=== PATIENT | male | born 1955 | race Caucasian/White ===

== ENCOUNTER 2016-04-18 13:03 | Emergency (ER) | payer OTHER ==
[~2016-04-18] VITALS: Ht 177.8 cm; Wt 70.9 kg
[~2016-04-18 13:03] MED LIST: FLV1 PO; MULT-589 PO; TGRSR100 PO; THM100 PO
[2016-04-18 13:06] VITALS: TEMP 36.5; Ht 177.8 cm; Wt 70.9 kg
[2016-04-18] MEDS ORDERED: LEVE500T13 PO (13:17)
--- NOTE | 2016-04-18 14:12 | EMERGENCY ROOM VISIT NOTE ---
History Report prepared by Scribe: Aria Sierra Under the Supervision of: Dr. Tammie Bryan D.O. First contact with patient: 14:00 Chief Complaint: NEURO SYMPTOMS Stated Complaint: SEIZURE/LEFT ARM NUMBNESS Nursing Triage Summary: patient with history of brain tumor and seizures since. states that last night he was standing up and felt dizzy and the room was spinning. He sat down. states he has been having some increased weakness on the left side. family states that he has had some auras which his has before seizure activity but not an actual seizure. PCP wants evaluated for possible stroke History of Present Illness The patient is a 61 year old male who presents to the Emergency Room with complaints of a possible seizure. He reports around 2100 last night, his left hand began to feel weak. When he stood up, he started to feel dizzy and diaphoretic. His family states he appeared very pale. 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 His family states he had been experiencing numbness in his arms for the past 1 week, which is usually a precursor to a seizure. His last "full blown" seizure was last summer. He is on anti-seizure medications and follows with Dr. Puente of [facility]. He does not drive a motor vehicle. He denies any recent nausea, vomiting or abdominal pain. He denies any recent issues with eating or drinking. The patient states his symptoms have mostly resolved and he feels better here in the ED. Source of History: patient, family Onset: 2099 last night Position: other (global) Timing: resolved Associated Symptoms: + diaphoresis, + numbness (numbness in bilateral arms) , + weakness (weakness in left hand), No abdominal pain, No nausea, No vomiting Review of Systems See HPI for pertinent positives & negatives. A total of 10 systems reviewed and were otherwise negative. Past Medical & Surgical Medical Problems: (1) Seizures Family History Patient reports no known family medical history. Social History Smoking Status: Current Every Day Smoker Alcohol Use: none Drug Use: marijuana Marital Status: Occupation Status: disabled Current/Historical Medications Scheduled Carbamazepine (Tegretol-Xr), 400 MG PO BID Folic Acid (Folic Acid), 1 MG PO QAM Levetiracetam (Keppra), 500 MG PO BID Multivitamins (Daily Marvin), 1 TAB PO QAM Thiamine HCl (Vitamin B-1), 100 MG PO QAM Allergies Coded Allergies: Phenytoin (Verified Allergy, Unknown, ?, 04/18/16) Physical Exam Vital Signs Date Time Temp Pulse Resp B/P Pulse Ox O2 Delivery O2 Flow Rate FiO2 04/18/16 16:34 67 16 119/67 99 04/18/16 15:52 55 16 134/69 99 04/18/16 15:50 55 16 134/69 99 59 126/59 63 129/73 04/18/16 15:00 54 16 105/57 97 Room Air 04/18/16 13:06 36.5 66 18 124/63 98 Room Air Physical Exam HEENT: Head - normocephalic and atraumatic. Pupils are equal, round, and reactive to light. Extraocular eye muscles are intact and sclera are anicteric. Ears - bilaterally patent canals with noninjected tympanic membranes and no evidence of hemotympanum. Nose - moist nasal mucosa without discharge. Mouth - moist buccal mucosa. Oropharynx is nonerythematous and there is no tonsillar exudate or edema noted. Neck: Supple; no JVD, nuchal rigidity, cervical lymphadenopathy, or auscultated bruits. Heart: Regular rate and rhythm. There is a normal S1 and S2 with no murmurs, clicks, or gallops appreciated. Lungs: Clear to auscultation bilaterally with no wheezes, rales, or rhonchi. Abdomen: Soft, completely nontender, nondistended, with good bowel sounds. There are no palpable pulsatile masses or hepatosplenomegaly. There is no guarding, rigidity, or rebound noted. Extremities: No evidence of cyanosis, clubbing, or edema. There are easily palpable peripheral pulses. Neuro:The patient is awake and alert, oriented to day, time, and place. Muscle strength is 4/5 in left arm and left leg, which is baseline for the patient, and 5/5 in right arm. The patient has equal sample tailor strength and equal pedal push and pull. There are no cerebellar signs. Cranial nerves II through XII intact. Medical Decision & Procedures ER Provider Diagnostic Interpretation: This CT scan was reviewed and interpreted by myself and the radiologist. HEAD CT NONCONTRAST Impression: 1. Chronic and postoperative changes right cerebral hemisphere. 2. No acute intracranial abnormality. 3. Moderate mucosal thickening of the ethmoid and maxillary sinuses. Electronically signed by: Pepe Storey M.D. 04/18/2016 3:23 PM Laboratory Results 04/18/16 14:40 Red Blood Count 4.47, Mean Corpuscular Volume 86.8, Mean Corpuscular Hemoglobin 31.3, Mean Corpuscular Hemoglobin Concent 36.1, Mean Platelet Volume 8.7, Neutrophils (%) (Auto) 67.7, Lymphocytes (%) (Auto) 19.9, Monocytes (%) (Auto) 8.7, Eosinophils (%) (Auto) 3.2, Basophils (%) (Auto) 0.3, Neutrophils # (Auto) 7.18, Lymphocytes # (Auto) 2.11, Monocytes # (Auto) 0.92, Eosinophils # (Auto) 0.34, Basophils # (Auto) 0.03 04/18/16 14:40 Test 04/18/16 14:40 White Blood Count 10.60 K/uL (4.8-10.8) Red Blood Count 4.47 M/uL (4.7-6.1) Hemoglobin 14.0 g/dL (14.0-18.0) Hematocrit 38.8 % (42-52) Mean Corpuscular Volume 86.8 fL (80-100) Mean Corpuscular Hemoglobin 31.3 pg (25-34) Mean Corpuscular Hemoglobin Concent 36.1 g/dl (32-36) Platelet Count 210 K/uL (130-400) Mean Platelet Volume 8.7 fL (7.4-10.4) Neutrophils (%) (Auto) 67.7 % Lymphocytes (%) (Auto) 19.9 % Monocytes (%) (Auto) 8.7 % Eosinophils (%) (Auto) 3.2 % Basophils (%) (Auto) 0.3 % Neutrophils # (Auto) 7.18 K/uL (1.4-6.5) Lymphocytes # (Auto) 2.11 K/uL (1.2-3.4) Monocytes # (Auto) 0.92 K/uL (0.11-0.59) Eosinophils # (Auto) 0.34 K/uL (0-0.5) Basophils # (Auto) 0.03 K/uL (0-0.2) RDW Standard Deviation 40.6 fL (36.4-46.3) RDW Coefficient of Variation 12.6 % (11.5-14.5) Immature Granulocyte % (Auto) 0.2 % Immature Granulocyte # (Auto) 0.02 K/uL (0.00-0.02) Anion Gap 11.0 mmol/L (3-11) Est Creatinine Clear Calc Drug Dose 148.6 ml/min Estimated GFR () 133.3 Estimated GFR (Non- 115.0 BUN/Creatinine Ratio 11.5 (10-20) Calcium Level 8.6 mg/dl (8.5-10.1) Total Bilirubin 0.4 mg/dl (0.2-1) Direct Bilirubin < 0.1 mg/dl (0-0.2) Aspartate Amino Transf (AST/SGOT) 13 U/L (15-37) Alanine Aminotransferase (ALT/SGPT) 23 U/L (12-78) Alkaline Phosphatase 85 U/L (45-117) Total Protein 6.7 gm/dl (6.4-8.2) Albumin 3.5 gm/dl (3.4-5.0) Carbamazepine (Tegretol) Level 11.5 mcg/ml (4-12) Laboratory results per my review. Medications Administered Medications (Trade) Dose Ordered Sig/Amaury Route Start Time Stop Time Status Last Admin Dose Admin Levetiracetam (Keppra Tab) 500 mg NOW STAT PO 04/18/16 15:56 04/18/16 15:57 DC 04/18/16 15:56 500 MG Procedure Keppra PO. ED Course 1402: Past medical records reviewed. The patient was evaluated in room B11B. A complete history and physical exam was performed. Laboratory studies were drawn as above. The patient for CT scan of the brain as described above. 1540: I discussed the patients case with Dr. Puente, [facility]. We discussed the likelihood the patient had a TIA versus a warning seizure. Dr. Puente is inclined to believe his symptoms were that of a warning seizure. He recommends we increase the patients Keppra to 750 mg twice a day and give him an extra 500 mg here in the ED today. He would like the patient contact his office tomorrow morning to have an MRI set up. 1556: Keppra 500 mg PO. 1608: I reevaluated the patient. I discussed his results and discharge instructions and he and his family verbalized complete understanding and agreement. Medical Decision The patient is a 61 year old male who presents to the ED with neurologic symptoms. The differential diagnoses include recurrent brain tumor, acute CVA, seizure and medication non-compliance. Lab results show Tegretol is 11.5, Keppra levels are pending, LFT's are normal, Glucose is normal, Electrolyte and renal function is normal, normal WBC and stable H&H. This is a 61-year-old male patient presents to the emergency department after having an episode last night where he felt lightheaded and dizzy and then developed worsening left arm and left leg weakness. Those symptoms resolved. I discussed the case with his neurologist. They will see him in follow-up. He will increase his dose of Keppra. The patient does not drive. Consults Time Called: 1535 Consulting Physician: Dr. Puente [facility] Returned Call: [phone] I discussed the patients case with Dr. Puente [facility]. We discussed the likelihood the patient had a TIA versus a warning seizure. Dr. Puente is inclined to believe his symptoms were that of a warning seizure. He recommends we increase the patients Keppra to 750 mg twice a day and give him an extra 500 mg here in the ED today. He would like the patient contact his office tomorrow morning to have an MRI set up. Impression Primary Impression: Left arm weakness Additional Impression: Dizziness Scribe Attestation The scribe's documentation has been prepared under my direction and personally reviewed by me in its entirety. I confirm that the note above accurately reflects all work, treatment, procedures, and medical decision making performed by me. Departure Information Dispostion Home / Self-Care Referrals Tu Puente M.D. (PCP) Patient Instructions [facility] Additional Instructions Increase Keppra to 750mg twice a day starting tomorrow. Follow up with Dr. Puente for an appointment to have MRI rescheduled. Problem Qualifiers
[2016-04-18 14:53] LABS: BASO % 0.3 %; BASO ABS # 0.03 K/uL (0-0.2); COMPLETE YES; EOS % 3.2 %; HEMATOCRIT 38.8 % (42-52); IG% 0.2 %; LYMPH % 19.9 %; LYMPH ABS # 2.11 K/uL (1.2-3.4); MEAN CELL VOLUME 86.8 fL (80-100); MEAN CORPUSCULAR HEMOGLOBIN 31.3 pg (25-34); MEAN CORPUSCULAR HGB CONC 36.1 g/dl (32-36); MEAN PLATELET VOLUME 8.7 fL (7.4-10.4); MONO % 8.7 %; NEUT % 67.7 %; PLATELET COUNT 210 K/uL (130-400); RED BLOOD COUNT 4.47 M/uL (4.7-6.1)
[2016-04-18 15:19] LABS: ALT/SGPT 23 U/L (12-78); BLOOD UREA NITROGEN 6 mg/dl (7-18); BUN/CREATININE RATIO 11.5 (10-20); CALCIUM 8.6 mg/dl (8.5-10.1); CARBON DIOXIDE 24 mmol/L (21-32); CHLORIDE 98 mmol/L (98-107); CREATININE 0.53 mg/dl (0.60-1.40); GLUCOSE 80 mg/dl (70-99); POTASSIUM 3.7 mmol/L (3.5-5.1); SODIUM 133 mmol/L (136-145)
[2016-04-18 15:22] LABS: ALKALINE PHOSPHATASE 85 U/L (45-117); AST/SGOT 13 U/L (15-37)
--- NOTE | 2016-04-18 15:25 | DIAGNOSTIC IMAGING REPORT ---
HEAD CT NONCONTRAST CT DOSE: 614.27 mGy.cm HISTORY: Mental status change. Weakness. h/o brain tumor; increased left sided weakness TECHNIQUE: Multiaxial CT images of the head were performed without the use of intravenous contrast. Comparison: 12/09/2014 Findings: Moderate mucosal thickening ethmoid and left maxillary sinus. Small mucous retention cyst anterior margin right maxillary sinus. Mastoids show moderate sclerosis on a chronic basis on the right. Craniotomy flap aligned anatomically. Postoperative encephalomalacia right cerebral hemisphere each changes are considered stable. No evidence of midline shift. No evidence for acute intracranial hemorrhage. Impression: Chronic and postoperative changes right cerebral hemisphere. 2. No acute intracranial abnormality. 3. Moderate mucosal thickening of the ethmoid and maxillary sinuses. Electronically signed by: Pepe Storey M.D. 04/18/2016 3:23 PM Dictated Date/Time: 04/18/2016 3:17 PM
[2016-04-18] MEDS ORDERED: LEVETIRACETAM 500 MG TAB PO STA (15:56)
[2016-04-18 16:34] VITALS: BP 119/67; PULSE 67; O2SAT 99
== END 2016-04-18 16:36 | disposition home or self-care (01) ==
LOC: C.EDB 13:05
DX: R42 Dizziness and giddiness (principal); M62.81 Muscle weakness (generalized); G40.909 Epilepsy, unspecified, not intractable, without status epilepticus; F17.200 Nicotine dependence, unspecified, uncomplicated; Z79.899 Other long term (current) drug therapy; Z88.8 Allergy status to other drugs, medicaments and biological substances

== ENCOUNTER → 2016-04-27 | Outpatient (CLI) | payer OTHER ==
[~2016-04-27] MED LIST changes: +GADAVIST IV PRN; +LEVE500T13 PO
--- NOTE | 2016-04-27 09:55 | DIAGNOSTIC IMAGING REPORT ---
MRI OF THE BRAIN COMBO CLINICAL HISTORY: Epilepsy. History of brain tumor resection. COMPARISON STUDY: MRI of the brain dated 03/11/2015. TECHNIQUE: MRI of the brain was performed utilizing various T1 and T2-weighted sequences in the axial, sagittal, and coronal planes. Contrast-enhanced sequences were acquired following the administration of 6.5 cc of Gadavist. Examination is performed utilizing the seizure protocol. FINDINGS: Brain parenchyma: There is a large resection cavity with encephalomalacia in the right frontoparietal region consistent with previous mass resection. Small foci of restricted diffusion are again seen along the resection margin, diminished in conspicuity from previous. There are scattered foci of peripheral gyriform enhancement along the resection margin as well as thickening and enhancement of the overlying dura. This is likely on a postoperative basis. There is no progressive or nodular/focal abnormal enhancement identified. There is no hemorrhage or mass effect. There is no restricted diffusion typical for acute ischemia. There is minimal subcortical and periventricular microangiopathic change. No extra-axial fluid collection is seen. The cerebellar tonsils are normal in configuration. Ventricles, sulci, and cisterns: Normal in configuration. Pituitary and sella: Unremarkable. Intracranial vasculature: Normal flow voids are maintained at the skull base. Orbits: The bony orbits are grossly intact. Orbital contents are normal in appearance. Sinuses and mastoids: There is subtotal opacification of left maxillary antrum. Moderate mucosal thickening is noted in the ethmoid sinuses. Mild mucosal thickening seen in the right maxillary antrum and the frontal sinuses. There are bilateral mastoid effusions. Calvarium: Again seen are changes from right frontoparietal craniotomy. No destructive calvarial lesion is seen. Cervical cord: Partially visualized cervical spinal cord is normal in morphology and signal intensity. IMPRESSION: 1. No acute intracranial abnormality. 2. Stable postoperative appearance of the brain as compared to the 03/11/2015 examination. 3. There is no clear evidence of recurrent/residual enhancing tumor. See above discussion. 4. Paranasal sinus disease and mastoid effusions as above. Electronically signed by: Soto Mcgee M.D. 04/27/2016 9:54 AM Dictated Date/Time: 04/27/2016 9:45 AM
== END | disposition home or self-care (01) ==
LOC: C.MRI 08:40
PROVIDERS: ATTEND Psychiatry & Neurology Neurology
DX: C71.9 Malignant neoplasm of brain, unspecified (principal); G40.901 Epilepsy, unspecified, not intractable, with status epilepticus; J32.9 Chronic sinusitis, unspecified; H74.8X3 Other specified disorders of middle ear and mastoid, bilateral

== ENCOUNTER → 2016-05-12 | Outpatient (CLI) | payer OTHER ==
[~2016-05-12] MED LIST changes: -GADAVIST IV PRN
--- NOTE | 2016-05-12 10:25 | DIAGNOSTIC IMAGING REPORT ---
Limited abdominal ultrasound ABDOMEN FOR HERNIA CLINICAL HISTORY: UNILATERAL INGUINAL HERNIA, W/O OBST OR GANGRENE hernia TECHNIQUE: Ultrasound COMPARISON STUDY: None FINDINGS: Reducible fat-containing left inguinal hernia. No evidence for bowel containment. IMPRESSION: Reducible fat-containing left inguinal hernia. No evidence of bowel containment. Electronically signed by: Pepe Storey M.D. 05/12/2016 10:23 AM Dictated Date/Time: 05/12/2016 10:22 AM
== END | disposition home or self-care (01) ==
LOC: C.ULTRBC 09:27
PROVIDERS: ATTEND Family Medicine
DX: K40.91 Unilateral inguinal hernia, without obstruction or gangrene, recurrent (principal)

== ENCOUNTER → 2016-05-31 | Outpatient (CLI) | payer OTHER ==
[~2016-05-31] MED LIST changes: +ATROPINE SULFATE 0.1 MG/ML 5ML SYR ONE; +DOBUTamine HCL 12.5 MG/ML 20 ML VIAL ONE; +METOPROLOL TARTRATE 1 MG/ML VIAL ONE
--- NOTE | 2016-05-31 13:57 | DOBUTAMINE ECHO ---
*NOTICE TO RECEIVING DEMOCRAT AGENCY This information is strictly Confidential and protected under [place] law. [place] law prohibits you from making any further disclosure of this information unless further disclosure is expressly permitted by the written consent of the person to whom it pertains or is authorized by law. A general authorization for the release of medical or other information is not sufficient for this purpose. Hospital accepts no responsibility if the information is made available to any other person, INCLUDING THE PATIENT. Interpretation Summary * Name: NICOLASA GUNN Study Date: 05/31/2016 08:41 AM BP: 119/81 mmHg * Patient Location: [facility] HR: 57 * : 1955 (M/d/yyyy) Gender: Male Height: 70 in * Age: 61 yrs Ethnicity: [place] Weight: 164 lb * Ordering Physician: Fannie Platt * Referring Physician: Fannie Platt * Performed By: Elle Flores RCS * * Reason For Study: PRE-OP / ABN EKG * BSA: 1.9 m2 * STRESS STUDY: Normal pharmacologic stress echocardiogram. No echocardiographic or ECG evidence of myocardial ischemia having achieved heart rate adequate for diagnostic purposes. * -- Conclusions -- * STRESS STUDY: Normal pharmacologic stress echocardiogram. No echocardiographic or ECG evidence of myocardial ischemia having achieved heart rate adequate for diagnostic purposes. Procedure Details * DOBUTAMINE ECHO, CPT#[id number] * ECHO COLOR FLOW, CPT #[id number] * ECHO DOPPLER, CPT #[id number] Left Ventricle * The left ventricle is normal in size. * There is normal left ventricular wall thickness. * Ejection Fraction = 50-55%. * Left ventricular systolic function is normal. * The left ventricular wall motion is normal at rest. * The left ventricular ejection fraction increases normally with stress. The left ventricular end-systolic cavity size reduces post-stress (normal response). The left ventricular wall motion with stress is normal. Right Ventricle * The right ventricle is normal in size and function. Atria * The left atrial size is normal. * Right atrial size is normal. * No ASD detected; PFO is not assessed. Mitral Valve * The mitral valve is normal. * There is no mitral valve stenosis. * Significant mitral regurgitation is absent. Tricuspid Valve * The tricuspid valve is normal. * There is no tricuspid stenosis. * Significant tricuspid regurgitation is absent. Aortic Valve * The aortic valve is trileaflet. * Aortic stenosis is absent. * There is no significant aortic regurgitation. Pulmonic Valve * The pulmonary valve is not well seen, but the Doppler examination is normal without significant regurgitation or stenosis. Great Vessels * The aortic root and proximal ascending aorta are normal sized. Pericardium * There is no pericardial effusion. Stress Parameters * The baseline ECG displays normal sinus rhythm. * IRBBB * Stress ECG: No ST changes. No arrhythmias. * The stress ECG response was normal * The stress portion of this study was personally supervised by the undersigned interpreting physician. * Rest heart rate was '57' BPM. * Rest blood pressure was '119/81' * Maximum heart rate achieved was 153 bpm. * Maximum heart rate was 95 % of maximum age-predicted heart rate. * Maximum blood pressure was '142/60' * Maximum Dobutamine infusion rate was '50' mcg/kg/min. * A total of 0.5 mg of intravenous Atropine was used to supplement Dobutamine for heart rate response. * Dobutamine infusion was terminated due to end of protocol/maximum medication doses * A total of 0 mg of IV Metoprolol was administered to reverse Dobutamine-induced tachycardia. MMode 2D Measurements and Calculations IVSd 1.1 cm IVSs 1.4 cm LVIDd 4.2 cm LVIDs 3.0 cm LVPWd 1.2 cm LVPWs 1.1 cm IVS/LVPW 0.91 FS 26.9 % EDV(Teich) 76.9 ml ESV(Teich) 36.2 ml EF(Teich) 52.9 % EDV(cubed) 72.1 ml ESV(cubed) 28.2 ml EF(cubed) 61.0 % % IVS thick 26.3 % % LVPW thick -12.21 % LV mass(C)d 170.4 grams LV mass(C)dI 88.8 grams/m\S\2 LV mass(C)s 118.4 grams LV mass(C)sI 61.7 grams/m\S\2 SV(Teich) 40.7 ml SI(Teich) 21.2 ml/m\S\2 SV(cubed) 44.0 ml SI(cubed) 22.9 ml/m\S\2 Ao root diam 3.9 cm Ao root area 12.2 cm\S\2 LA dimension 2.7 cm LA/Ao 0.69 LVOT diam 1.9 cm LVOT area 2.8 cm\S\2 LVAd ap4 30.4 cm\S\2 LVLd ap4 8.3 cm EDV(MOD-sp4) 91.1 ml EDV(sp4-el) 94.4 ml LVAs ap4 18.0 cm\S\2 LVLs ap4 6.8 cm ESV(MOD-sp4) 40.4 ml ESV(sp4-el) 40.6 ml EF(MOD-sp4) 55.6 % EF(sp4-el) 57.0 % LVAd ap2 36.3 cm\S\2 LVLd ap2 8.3 cm EDV(MOD-sp2) 129.0 ml EDV(sp2-el) 134.5 ml LVAs ap2 25.2 cm\S\2 LVLs ap2 7.3 cm ESV(MOD-sp2) 71.3 ml ESV(sp2-el) 73.8 ml EF(MOD-sp2) 44.7 % EF(sp2-el) 45.1 % LVLd %diff -0.26 % EDV(MOD-bp) 109.4 ml LVLs %diff 7.0 % ESV(MOD-bp) 55.8 ml EF(MOD-bp) 48.9 % SV(MOD-sp4) 50.6 ml SI(MOD-sp4) 26.4 ml/m\S\2 SV(MOD-sp2) 57.7 ml SI(MOD-sp2) 30.1 ml/m\S\2 SV(MOD-bp) 53.5 ml SI(MOD-bp) 27.9 ml/m\S\2 SV(sp4-el) 53.7 ml SI(sp4-el) 28.0 ml/m\S\2 SV(sp2-el) 60.7 ml SI(sp2-el) 31.6 ml/m\S\2 Doppler Measurements and Calculations MV E max poonam 52.3 cm/sec MV A max poonam 42.6 cm/sec MV E/A 1.2 MV P1/2t max poonam 67.2 cm/sec MV P1/2t 97.4 msec MVA(P1/2t) 2.3 cm\S\2 MV dec slope 202.1 cm/sec\S\2 MV dec time 0.43 sec Ao V2 max 118.3 cm/sec Ao max PG 5.6 mmHg Ao max PG (full) -1.04 mmHg MANUEL(V,A) 3.1 cm\S\2 MANUEL(V,D) 3.1 cm\S\2 LV V1 max PG 6.6 mmHg LV V1 max 128.9 cm/sec PA V2 max 95.3 cm/sec PA max PG 3.6 mmHg TR max poonam 230.1 cm/sec
== END | disposition home or self-care (01) ==
LOC: C.CPL 07:55
PROVIDERS: ATTEND Internal Medicine
DX: Z01.818 Encounter for other preprocedural examination (principal); R94.31 Abnormal electrocardiogram [ECG] [EKG]

== ENCOUNTER 2021-03-01 10:28 | Inpatient (IN) ==
[2021-03-01] MEDS ORDERED: ACETAMINOPHEN 500 MG TAB PO STA (10:36)
[2021-03-01] MEDS ORDERED: ONDANSETRON INJ 2 MG/ML 2 ML VIAL IV STA (10:36)
[2021-03-01] MEDS ORDERED: SODIUM CHLORIDE 0.9% 1000ML 1,000 ML IV STA (10:36)
--- NOTE | 2021-03-01 10:42 | Emergency Department Note ---
Impression & Plan Acute orchitis, Fever, Acute hypotension ED Provider Note NAME: NICOLASA Limon MONDAY AGE: 66 SEX: M : 1955 ARRIVES VIA: Ambulance INFORMANT: Patient, ED PROVIDER(S): Kalen Murguia DO CHIEF COMPLAINT: Testicle pain HPI: The patient is a 66-year-old male who presented to emergency department for evaluation of testicular pain. The patient arrived via ambulance. He took Tylenol this morning. He states he had a subjective fever but did not check his temperature at home. He also complains of left flank pain and left back pain. He denies having any nausea or vomiting. He denies having any lower extremity swelling or pain. He does complain of a slight cough but no sore throat or rhinorrhea. He said no exposure to COVID-19. The patient states that he is not currently sexually active. He denies having any penile discharge or rashes. ROS: See above HPI for pertinent positives & negatives. A total of 10 systems reviewed and were otherwise negative. PAST MEDICAL HISTORY: See Below PAST SURGICAL HISTORY: See Below FAMILY HISTORY: See Below SOCIAL HISTORY: See Below HOME MEDICATIONS: See Below ALLERGIES: GENERAL: Patient is awake alert in no acute distress patient is resting comfortably and showing no signs of anxiety EYES: The conjunctivae are clear. The pupils are round and reactive. EARS, NOSE, MOUTH AND THROAT: The nose is without any evidence of any deformity. NECK: The neck is nontender and supple. RESPIRATORY: Normal respiratory effort is noted there is no evidence of wheezing rhonchi or rales CARDIOVASCULAR: Regular rate and rhythm noted there no murmurs rubs or gallops normal S1 normal S2. GASTROINTESTINAL: The abdomen is soft and nondistended. There is left lower quadrant tenderness to palpation but no guarding rigidity : Circumcised male genitalia was noted. Testicles are descended bilaterally. There is significant tenderness on the left testicle. BACK: No midline tenderness was noted. Left CVA tenderness was noted to percussion. Range of motion appears intact. MUSCULOSKELETAL/EXTREMITIES: The patient presented to emergency department wearing a left shoulder sling because of a problem with his left shoulder that is being addressed by his orthopedic physician. SKIN: Skin is warm and dry. There is no significant pedal edema. NEUROLOGIC: Patient is awake alert and oriented x3. VITALS: See Below PHYSICAL EXAMINATION: MEDICAL DECISION MAKING: The patient is a 66-year-old male who presented to emergency department for an evaluation of testicular pain. The patient was found have a fever and hypotension. He was treated with IV fluids and IV antibiotics in the emergency department. I discussed the patient's laboratory and radiographic studies with him. He was found to have orchitis on ultrasound. Certainly this could cause the patient's presentation but the patient also has some complicating factors including left-sided weakness and inability to ambulate secondary to testicular pain. For this reason I discussed his case [facility] They have agreed to evaluate the patient in the emergency department for further management and disposition. The patient was reevaluated multiple times. Triage Nursing notes reviewed. Prior medical records reviewed Vital Signs: reviewed and remarkable for hypotension and fever. Differential diagnosis: Testicular torsion, mass, infection, hernia, hydrocele, epididymitis, STI, trauma, intra-abdominal process, as well as other pathologies. ER treatment provided: See below Diagnostics interpreted by me: ECG: none Cardiac Monitoring: An order was placed for continuous cardiac monitoring. The monitor shows a rate of 70 bpm with sinus rhythm. Laboratory studies: As stated above and show below. Imaging studies: See below Consultation(s): I discussed this case with Dr. Tolliver who is [facility]. He will evaluate the patient in the emergency department. 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, bilateral Drug abuse History of brain tumor (2014) R frontal astrocytoma, s/p removal Left hemiparesis Noncompliance with medication regimen Right frontal lobe mass Seizure disorder Surgical History History of craniotomy (2014) S/P inguinal hernia repair L S/P knee surgery R knee Family History Other Adopted Denies family history of Ovarian cancer Prostate cancer Bipolar disorder Myocardial infarction Colorectal cancer Social History Smoking Status: Current every day smoker Tobacco Type: Cigarettes Age Started Using Tobacco: 18; packs per day: 1; Cigarettes Per Day: 20; Second Hand Exposure: No; Hx Alcohol Use: Yes Alcohol type: beer Alcohol Intake Frequency: Monthly or Less Alcohol Intake Frequency Comment: maybe a beer a month Hx Substance Use: Yes Non-Prescribed Medications: Marijuana Preferred Language: Filipino Visual Impairment: Limited Hearing Ability: Normal Truck Guard Required: No Beliefs That Will Affect Care: None marital status: marital status details: common-law marriage Current Living Situation: Significant Other current occupational status: disabled How many Children do You have: 3 How many Children do You have Comment: 3 grown sons Feels Safe at Home: Yes Childhood Exposure to Second-Hand Smoke: Yes caffeine: Yes during the past year weight has: remained stable Dental Care, Regularly: No Physical Activity Frequency: Daily Seatbelt Use: always Sunscreen Use: Yes Allergies Allergies Allergy/AdvReac Type Severity Reaction Status Date / Time phenytoin Allergy Intermediate Redness of Verified 03/01/21 15:01 Skin zonisamide AdvReac Intermediate Depression Verified 03/01/21 15:01 Home Meds Home Medications Medication Instructions Recorded Confirmed folic acid 1 mg tablet 1 mg PO BID #30 tab 09/11/18 03/01/21 multivitamin (Multiple Vitamins) 1 tab PO DAILY 09/11/18 03/01/21 vitamin B complex (B 1 tab PO DAILY 09/11/18 03/01/21 Complex-Vitamin B12) glucosamine sulfate 2KCl 1,000 mg 2,000 mg PO BID 03/14/19 03/01/21 tablet (Glucosamine Relief) Saccharomyces boulardii 250 mg 500 mg PO BID cap 10/21/20 03/01/21 capsule (Florastor) cholecalciferol (vitamin D3) 25 25 mcg PO DAILY 03/01/21 03/01/21 mcg (1,000 unit) tablet (Vitamin D3) Previous Rx's Medication Instructions Recorded triamcinolone acetonide 0.1 % 1 applic TOPICAL BID #454 g 07/24/20 topical ointment Wheelchair (Manual) See Rx Instructions .ROUTE 10/23/20 .COMPLEX #1 ea Wheeled Walker See Rx Instructions .ROUTE 10/23/20 .COMPLEX #1 ea levetiracetam 1,000 mg tablet 1,000 mg PO BID 90 Days #180 tab 01/11/21 cholestyramine (with sugar) 4 gram 4 g PO BID #378 g 01/13/21 oral powder (Questran) dexamethasone 4 mg tablet 2 mg PO BID #30 tab 02/03/21 (Decadron) carbamazepine 200 mg 400 mg PO BID 90 Days #360 cap 03/01/21 capsule,extended release [id number] Results & Data (ED) Vital Signs Vital Signs - 24 hr 03/01/21 10:36 03/01/21 12:00 03/01/21 14:00 Temperature 38.4 C H Temperature Source Oral Pulse Rate 92 H Pulse Rate [Right Finger] 92 H 82 Pulse Rhythm Regular Pulse Rhythm [Right Finger] Regular Regular Pulse Strength Normal Pulse Strength [Right Finger] Normal Normal Respiratory Rate 18 16 18 Respiratory Effort / Characteristics Non-Labored Non-Labored Non-Labored Respiratory Depth Normal Normal Normal Respiratory Pattern Regular Blood Pressure 117/65 Blood Pressure [Left Arm] 107/50 L 98/51 L Blood Pressure Mean 82 Blood Pressure Mean [Left Arm] 69 66 Blood Pressure Position Lying Blood Pressure Position [Left Arm] Lying Lying Pulse Oximetry 95 96 95 Oxygen Delivery Method Room Air Room Air Room Air Sepsis Recent Fever Within 48 Hours No Sepsis New/Unexplained Change in Mental Status N/A Sepsis Action Taken by Nursing No Action Required 03/01/21 16:00 Temperature Temperature Source Pulse Rate Pulse Rate [Right Finger] 70 Pulse Rhythm Pulse Rhythm [Right Finger] Regular Pulse Strength Pulse Strength [Right Finger] Normal Respiratory Rate 18 Respiratory Effort / Characteristics Non-Labored Respiratory Depth Normal Respiratory Pattern Regular Blood Pressure Blood Pressure [Left Arm] 94/60 L Blood Pressure Mean Blood Pressure Mean [Left Arm] 71 Blood Pressure Position Blood Pressure Position [Left Arm] Lying Pulse Oximetry 97 Oxygen Delivery Method Room Air Sepsis Recent Fever Within 48 Hours Sepsis New/Unexplained Change in Mental Status Sepsis Action Taken by Snf Medications Current Medication List: was personally reviewed by me Laboratory Data Attestation: I reviewed the patient's lab results. Result diagrams: 03/01/21 11:26 03/01/21 11:26 Lab Results 03/01/21 03/01/21 03/01/21 Range/Units 11:26 11:26 11:26 WBC 20.02 H (4.8-10.8) K/uL RBC 4.34 L (4.7-6.1) M/uL Hgb 13.8 L (14.0-18.0) g/dL Hct 40.2 L (42-52) % MCV 92.6 (80-100) fL MCH 31.8 (25-34) pg MCHC 34.3 (32-36) g/dL RDW Std Deviation 43.1 (36.4-46.3) fL RDW Coeff of Karen 12.5 (11.5-14.5) % Plt Count 162 (130-400) K/uL MPV 8.1 (7.4-10.4) fL Immature Gran % (Auto) 0.2 % Neut % (Auto) 86.3 % Lymph % (Auto) 6.9 % Conway % (Auto) 6.5 % Eos % (Auto) 0.1 % Baso % (Auto) 0.0 % Neut # (Auto) 17.25 H (1.4-6.5) K/uL Lymph # (Auto) 1.39 (1.2-3.4) K/uL Conway # (Auto) 1.30 H (0.11-0.59) K/uL Eos # (Auto) 0.02 (0-0.5) K/uL Baso # (Auto) 0.01 (0-0.2) K/uL Immature Gran # (Auto) 0.05 H (0.00-0.02) K/uL Sodium 135 L (136-145) mmol/L Potassium 3.5 (3.5-5.1) mmol/L Chloride 101 (98-107) mmol/L Carbon Dioxide 27 (21-32) mmol/L Anion Gap 7 (3-11) BUN 13 (6-23) mg/dl Creatinine 0.50 L (0.6-1.4) mg/dl Est Cr Clr Drug Dosing 146.3 ml/min Est GFR ( Amer) 131.8 ml/min Est GFR (Non-Af Amer) 113.7 ml/min BUN/Creatinine Ratio 26.0 H (10-20) Glucose 90 (70-99(Fasting)) mg/dl Lactate (0.4-2.0) mmol/L Calcium 8.9 (8.5-10.1) mg/dl Total Bilirubin 0.6 (0.2-1.0) mg/dl AST 11 L (13-39) U/L ALT 14 (7-52) U/L Alkaline Phosphatase 68 (34-104) U/L Total Protein 6.7 (6.0-8.3) gm/dl Albumin 3.8 (3.4-5.0) gm/dl Globulin 2.9 (2.5-4.0) gm/dl Albumin/Globulin Ratio 1.3 (0.9-2) Lipase 8 L (11-82) U/L Urine Color Urine Appearance (Clear) Urine pH (4.5-7.5) Ur Specific [place] (1.000-1.030) Urine Protein (Negative) Urine Glucose (UA) (Negative) Urine Ketones (Negative) Urine Blood (Negative) Urine Nitrite (Negative) Urine Bilirubin (Negative) Urine Urobilinogen (Negative) Ur Leukocyte Esterase (Negative) Urine WBC (Auto) (0-5) /hpf Urine RBC (Auto) (0-4) /hpf U Hyaline Cast (Auto) (0-5) /lpf U Epithel Cells (Auto) (0-5) /lpf Urine Bacteria (Auto) (Negative) Carbamazepine 9.3 (4-12) mcg/ml 03/01/21 03/01/21 Range/Units 12:38 15:25 WBC (4.8-10.8) K/uL RBC (4.7-6.1) M/uL Hgb (14.0-18.0) g/dL Hct (42-52) % MCV (80-100) fL MCH (25-34) pg MCHC (32-36) g/dL RDW Std Deviation (36.4-46.3) fL RDW Coeff of Karen (11.5-14.5) % Plt Count (130-400) K/uL MPV (7.4-10.4) fL Immature Gran % (Auto) % Neut % (Auto) % Lymph % (Auto) % Conway % (Auto) % Eos % (Auto) % Baso % (Auto) % Neut # (Auto) (1.4-6.5) K/uL Lymph # (Auto) (1.2-3.4) K/uL Conway # (Auto) (0.11-0.59) K/uL Eos # (Auto) (0-0.5) K/uL Baso # (Auto) (0-0.2) K/uL Immature Gran # (Auto) (0.00-0.02) K/uL Sodium (136-145) mmol/L Potassium (3.5-5.1) mmol/L Chloride (98-107) mmol/L Carbon Dioxide (21-32) mmol/L Anion Gap (3-11) BUN (6-23) mg/dl Creatinine (0.6-1.4) mg/dl Est Cr Clr Drug Dosing ml/min Est GFR ( Amer) ml/min Est GFR (Non-Af Amer) ml/min BUN/Creatinine Ratio (10-20) Glucose (70-99(Fasting)) mg/dl Lactate 0.9 (0.4-2.0) mmol/L Calcium (8.5-10.1) mg/dl Total Bilirubin (0.2-1.0) mg/dl AST (13-39) U/L ALT (7-52) U/L Alkaline Phosphatase (34-104) U/L Total Protein (6.0-8.3) gm/dl Albumin (3.4-5.0) gm/dl Globulin (2.5-4.0) gm/dl Albumin/Globulin Ratio (0.9-2) Lipase (11-82) U/L Urine Color Yellow Urine Appearance Clear (Clear) Urine pH 6.5 (4.5-7.5) Ur Specific [place] 1.022 (1.000-1.030) Urine Protein Negative (Negative) Urine Glucose (UA) Negative (Negative) Urine Ketones Negative (Negative) Urine Blood Negative (Negative) Urine Nitrite Negative (Negative) Urine Bilirubin Negative (Negative) Urine Urobilinogen Negative (Negative) Ur Leukocyte Esterase Trace H (Negative) Urine WBC (Auto) 1-5 (0-5) /hpf Urine RBC (Auto) 0-4 (0-4) /hpf U Hyaline Cast (Auto) 0 (0-5) /lpf U Epithel Cells (Auto) 5-10 H (0-5) /lpf Urine Bacteria (Auto) Negative (Negative) Carbamazepine (4-12) mcg/ml Administered Medications Fentanyl Citrate (Fentanyl Citrate 100 Mcg/2 Ml Vial) 50 mcg IV Q15M PRN PRN Reason: Pain Stop: 03/15/21 10:35 Last Admin: 03/01/21 11:47 Dose: 50 mcg Documented by: [id number] Sodium Chloride (Nss 1000ml) 1,000 mls @ 999 mls/hr IV .Q1H1M ONE Stop: 03/01/21 16:53 Last Admin: 03/01/21 16:11 Dose: 999 mls/hr Documented by: [id number] Discontinued Medications Acetaminophen (Acetaminophen 500 Mg Tab) 1,000 mg PO NOW STA Stop: 03/01/21 10:37 Last Admin: 03/01/21 11:42 Dose: 1,000 mg Documented by: [id number] Sodium Chloride (Nss 1000ml) 1,000 mls @ 999 mls/hr IV .Q1H1M STA Stop: 03/01/21 11:36 Last Infusion: 03/01/21 13:01 Dose: 0 mls/hr Documented by: [id number] Admin: 03/01/21 11:42 Dose: 999 mls/hr Documented by: [id number] Piperacillin Sod/Tazobactam Sod (Zosyn) 4.5 gm in 120 mls @ 240 mls/hr IV NOW ONE Stop: 03/01/21 12:12 Last Infusion: 03/01/21 13:21 Dose: 0 mls/hr Documented by: [id number] Admin: 03/01/21 12:44 Dose: 240 mls/hr Documented by: [id number] Ioversol (Optiray 320 100ml) 94 ml IV ONCE ONE Stop: 03/01/21 13:05 Last Admin: 03/01/21 13:05 Dose: 94 ml Documented by: [id number] Ondansetron HCl (Ondansetron Inj 2 Mg/Ml 2 Ml Vial) 4 mg IV NOW STA Stop: 03/01/21 10:37 Last Admin: 03/01/21 11:42 Dose: 4 mg Documented by: [id number] Imaging Data Radiologist's Impression: Scrotum Ultrasound 03/01/21 10:36 SCROTAL ULTRASOUND CLINICAL HISTORY: Left sided pain. COMPARISON STUDY: None. TECHNIQUE: Grayscale and color and duplex Doppler sonography of the scrotum was performed. FINDINGS: The right testis measures 3.9 x 3 x 2.1 cm and the left measures 4.5 x 3.1 x 3 cm. There is asymmetric increased flow within the left testis. Bilateral dilated rete testes are incidentally noted. These are benign. There is a small complex left hydrocele. There is no sonographic evidence for epididymitis. No suspicious testicular masses are present. Numerous echogenic foci within the testes are noted. This represents microlithiasis. IMPRESSION: 1. Asymmetric increased flow within the left testis suggestive of orchitis. 2. Small, mildly complex left hydrocele. 3. Testicular microlithiasis. ACT 112: Negative or not required by law. Electronically signed by: Dong Vicente M.D. 03/01/2021 12:20 PM Abdomen/Pelvis CT 03/01/21 11:42 CT abd pelvis IV con only CLINICAL HISTORY: left sided pain, fever TECHNIQUE: Helical axial images of the abdomen and pelvis were obtained and displayed. Automated dose lowering techniques and/or adjustment according to patient size were utilized for this exam. This exam was performed with intravenous contrast. COMPARISON: None available at the time of this dictation. FINDINGS: Lower chest: Bibasilar atelectasis versus scarring is seen. Liver: Unremarkable. No focal lesions are seen. Gallbladder and biliary tree: No calcified gallstones. Normal caliber wall. No intra- or extrahepatic biliary ductal dilation. Pancreas: Unremarkable, no focal lesions. Spleen: Unremarkable. Adrenals: Unremarkable. Kidneys and ureters: A hypodensity is seen in the left kidney superior pole which does not measure simple fluid attenuation. This measures 16 mm in diameter. Bladder: Limited evaluation due to underdistention. Reproductive organs: Unremarkable. Bowel: Diverticulosis is seen without evidence of diverticulitis. The appendix is normal. There is a small hiatal hernia. Lymph nodes Retroperitoneal: Unremarkable. Mesenteric: Unremarkable. Pelvic: Subcentimeter lymph nodes are noted. Peritoneum: Normal. Vessels: Atherosclerotic calcifications are seen. Abdominal wall: Left fat containing inguinal hernia. Bones: Degenerative changes in the visualized spine. IMPRESSION: 1. No acute abnormalities are seen to explain left-sided pain and fever. No evidence of diverticulitis. No changes of pyelonephritis are seen. 2. There is a 16 mm hypodense lesion in the left kidney superior pole which is not measures simple fluid density. If not previously evaluated, nonemergent CT or MRI renal mass protocol can be performed. ACT 112: Negative or not required by law. Electronically signed by: Keith Asif M.D. 03/01/2021 1:16 PM Discharge Plan Visit Data Chief Complaint: Testicular Pain ED Provider: Kalen Murguia Discharge Problem: Acute orchitis, Fever, Acute hypotension Patient Disposition: Being Evaluated by Hospitalist Forms Stand Alone Forms: [facility] Prescriptions Prescriptions: No Action levetiracetam 1,000 mg tablet 1,000 mg PO BID 90 Days Qty: 180 RF: 1 cholestyramine (with sugar) [Questran] 4 gram powder 4 g PO BID Qty: 378 RF: 2 dexamethasone [Decadron] 4 mg tablet 2 mg PO BID Qty: 30 RF: 3 carbamazepine 200 mg capsule, ER multiphase 12 hr 400 mg PO BID 90 Days Qty: 360 RF: 1 glucosamine sulfate 2KCl [Glucosamine Relief] 1,000 mg tablet 2,000 mg PO BID RF: 0 triamcinolone acetonide 0.1 % ointment 1 applic topical BID Qty: 454 RF: 0 folic acid 1 mg tablet 1 mg PO BID Qty: 30 RF: 0 vitamin B complex [B Complex-Vitamin B12] tablet 1 tab PO DAILY RF: 0 multivitamin [Multiple Vitamins] tablet 1 tab PO DAILY RF: 0 Wheelchair (Manual) Device See Rx Instructions .ROUTE .COMPLEX Qty: 1 RF: 0 Wheeled Walker Misc See Rx Instructions .ROUTE .COMPLEX Qty: 1 RF: 0 Saccharomyces boulardii [Florastor] 250 mg capsule 500 mg PO BID RF: 0 cholecalciferol (vitamin D3) [Vitamin D3] 25 mcg (1,000 unit) Tablet 25 mcg PO DAILY RF: 0 Referrals Referrals: Andreia Fields DO [Primary Care Provider] -
[2021-03-01 11:37] LABS: Basophils # (auto) 0.01 K/uL (0-0.2); Eosinophils # (auto) 0.02 K/uL (0-0.5); Eosinophils % (auto) 0.1 %; Hematocrit (blood only) 40.2 % (42-52); Hemoglobin 13.8 g/dL (14.0-18.0); Immature Granulocytes # (auto) 0.05 K/uL (0.00-0.02); Immature Granulocytes % (auto) 0.2 %; Lymphocytes # (auto) 1.39 K/uL (1.2-3.4); Lymphocytes % (auto) 6.9 %; Mean Corpuscular Hemoglobin 31.8 pg (25-34); Mean Corpuscular Hgb Conc 34.3 g/dL (32-36); Mean Corpuscular Volume 92.6 fL (80-100); Mean Platelet Volume 8.1 fL (7.4-10.4); Monocytes % (auto) 6.5 %; Neutrophils # (auto) 17.25 K/uL (1.4-6.5); Neutrophils % (auto) 86.3 %; Platelet Count 162 K/uL (130-400); RDW Coefficient of Variation 12.5 % (11.5-14.5); RDW Standard Deviation 43.1 fL (36.4-46.3); Red Blood Count 4.34 M/uL (4.7-6.1); White Blood Count 20.02 K/uL (4.8-10.8)
[2021-03-01] MEDS ORDERED: PIPERACILL/TAZOBAC CONSULT ACTIVE PRN (11:43)
[2021-03-01] MEDS ORDERED: PIPERACILLIN/TAZOBACTAM 4.5 GM/120 ML BAG IV ONE (11:43)
[2021-03-01] MEDS: fentaNYL citrate 100 MCG/2 ML VIAL IV PRN ×2 (11:47→17:25)
[2021-03-01 12:02] LABS: Albumin Globulin Ratio 1.3 (0.9-2); Albumin Level 3.8 gm/dl (3.4-5.0); Bilirubin,Total 0.6 mg/dl (0.2-1.0); Calcium 8.9 mg/dl (8.5-10.1); Creatinine Clr Calc Pharmacy 146.3 ml/min; Est GFR (African American) 131.8 ml/min; Est GFR (Non-African American) 113.7 ml/min; Globulin 2.9 gm/dl (2.5-4.0); Potassium 3.5 mmol/L (3.5-5.1); Total Protein 6.7 gm/dl (6.0-8.3)
--- NOTE | 2021-03-01 12:22 | Ultrasound Report ---
SCROTAL ULTRASOUND CLINICAL HISTORY: Left sided pain. COMPARISON STUDY: None. TECHNIQUE: Grayscale and color and duplex Doppler sonography of the scrotum was performed. FINDINGS: The right testis measures 3.9 x 3 x 2.1 cm and the left measures 4.5 x 3.1 x 3 cm. There is asymmetric increased flow within the left testis. Bilateral dilated rete testes are incidentally not ed. These are benign. There is a small complex left hydrocele. There is no sonographic evidence for e pididymitis. No suspicious testicular masses are present. Numerous echogenic foci within the testes a re noted. This represents microlithiasis. IMPRESSION: 1. Asymmetric increased flow within the left testis suggestive of orchitis. 2. Small, mildly complex left hydrocele. 3. Testicular microlithiasis. ACT 112: Negative or not required by law. Electronically signed by: Dong Vicente M.D. 03/01/2021 12:20 PM
[2021-03-01] MEDS ORDERED: OPTIRAY 320 100ml IV ONE (13:04)
--- NOTE | 2021-03-01 13:17 | CT Scan Report ---
CT abd pelvis IV con only CLINICAL HISTORY: left sided pain, fever TECHNIQUE: Helical axial images of the abdomen and pelvis were obtained and displayed. Automated dose lowering techniques and/or adjustment according to patient size were utilized for this exam. This e xam was performed with intravenous contrast. COMPARISON: None available at the time of this dictation. FINDINGS: Lower chest: Bibasilar atelectasis versus scarring is seen. Liver: Unremarkable. No focal lesions are seen. Gallbladder and biliary tree: No calcified gallstones. Normal caliber wall. No intra- or extrahepatic biliary ductal dilation. Pancreas: Unremarkable, no focal lesions. Spleen: Unremarkable. Adrenals: Unremarkable. Kidneys and ureters: A hypodensity is seen in the left kidney superior pole which does not measure si mple fluid attenuation. This measures 16 mm in diameter. Bladder: Limited evaluation due to underdistention. Reproductive organs: Unremarkable. Bowel: Diverticulosis is seen without evidence of diverticulitis. The appendix is normal. There is a small hiatal hernia. Lymph nodes Retroperitoneal: Unremarkable. Mesenteric: Unremarkable. Pelvic: Subcentimeter lymph nodes are noted. Peritoneum: Normal. Vessels: Atherosclerotic calcifications are seen. Abdominal wall: Left fat containing inguinal hernia. Bones: Degenerative changes in the visualized spine. IMPRESSION: 1. No acute abnormalities are seen to explain left-sided pain and fever. No evidence of diverticulit is. No changes of pyelonephritis are seen. 2. There is a 16 mm hypodense lesion in the left kidney superior pole which is not measures simple f luid density. If not previously evaluated, nonemergent CT or MRI renal mass protocol can be performed . ACT 112: Negative or not required by law. Electronically signed by: Keith Asif M.D. 03/01/2021 1:16 PM
[2021-03-01 15:42] LABS: Appearance Urine Clear (Clear); Bacteria Urine Automated Negative (Negative); Bilirubin Urine Negative (Negative); Blood Urine Negative (Negative); Cast Urine Automated 0 /lpf (0-5); Color Urine Yellow; Glucose Urine UA Negative (Negative); Ketones Urine Negative (Negative); Leukocyte Esterase Urine Trace (Negative); Nitrite Urine Negative (Negative); Protein Urine Negative (Negative); RBC Urine Automated 0-4 /hpf (0-4); Specific Gravity Urine 1.022 (1.000-1.030); Urobilinogen Urine Negative (Negative); pH Urine 6.5 (4.5-7.5)
[2021-03-01] MEDS ORDERED: SODIUM CHLORIDE 0.9% 1000ML 1,000 ML IV ONE (15:53)
--- NOTE | 2021-03-01 16:03 | Electrocardiogram Report ---
Test Reason : Blood Pressure : / mmHG Vent. Rate : 090 BPM Atrial Rate : 090 BPM P-R Int : 182 ms QRS Dur : 130 ms QT Int : 374 ms P-R-T Axes : 084 039 070 degrees QTc Int : 457 ms Normal sinus rhythm Right bundle branch block Abnormal ECG When compared with ECG of 09-DEC-2014 17:26, Right bundle branch block is now Present Confirmed by Bon George ([id number]) on 03/01/2021 4:03:12 PM Referred By: REFERRED SELF Confirmed By:Jerzy George
[2021-03-01] MEDS ORDERED: levoFLOXacin/D5W 750 MG/150 ML BAG IV STA (16:11)
[2021-03-01] MEDS ORDERED: cefTRIAXone SODIUM 2,000 MG/70 ML BAG IV STA (16:17)
--- NOTE | 2021-03-01 17:00 | History & Physical Report ---
Date of Service March 01, 2021 Assessment & Plan (1) Acute orchitis: Plan: Acute orchitis with small hydrocele - Blood culture pending - UA negative- urine culture pending - Urine G&C, RPR - Scrotal support/anti-inflammatory - Tylenol, Motrin for fever and pain - Oxy 5mg PO q6hr PRN severe pain - bladder scan/straight cath if needed - No abscess, follow clinical response- urology consult if failing therapy - Rocephin 2GM IV q24 hours - He received dose of Levaquin in EMD- continue with his age and ? 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 - Follow up with MRI or CT with renal mass protocol for further evaluation recommended (7) Hypovolemia: Plan: Mild with decreased PO intake at home - borderline sodium, dark concentrated urine - LR at 80 ml/hour overnight x1 liter History of Present Illness Primary Care Provider: Andreia Fields, DO 66 YOM with past medical history of: DJD, Right sided-astrocytoma (resection in 2014) with left hemiparesis, seizures (on Keppra and Carbamazepine). Patient came to the EMD today via EMS secondary to increase in left testicular pain associated with nausea. Patient has had one day history of left sided testicular pain, which he thought he may have just sat on it while moving around. The pain initially was dull intermittent ache. This progressed this morning to a sharp constant aching with radiation to the left groin, and noted redness of his left testicle. In the EMD the patient had routine labs drawn, ultrasound of his testicles, and CT scan of his abdomen. He was noted to have increased WBC count and fever of 38.4 blood cultures were drawn and UA done. He was also noted to have WBC of 20 was empirically started on Zosyn and Levaquin. Ultrasound of his testicle had small hydrocele, increase flow within left testes suggestive of orchitis and Negative for torsion, abscess or mass. CT of the abdomen and pelvis with no acute abnormalities, but ntoed hypodense lesion of the left kidney. Patient will be admitted to observe response to therapy and pain control. Will transition antibiotics to Rocephin, follow up with G&C Urine and serum RPR for other STIs. Patient COVID test on admission is: NEGATIVE Allergies Allergy/AdvReac Type Severity Reaction Status Date / Time phenytoin Allergy Intermediate Redness of Verified 03/01/21 15:01 Skin zonisamide AdvReac Intermediate Depression Verified 03/01/21 15:01 Home Medications Medication Instructions Recorded Confirmed Type folic acid 1 mg tablet 1 mg PO BID #30 tab 09/11/18 03/01/21 History multivitamin (Multiple Vitamins) 1 tab PO DAILY 09/11/18 03/01/21 History vitamin B complex (B 1 tab PO DAILY 09/11/18 03/01/21 History Complex-Vitamin B12) glucosamine sulfate 2KCl 1,000 mg 2,000 mg PO BID 03/14/19 03/01/21 History tablet (Glucosamine Relief) triamcinolone acetonide 0.1 % 1 applic TOPICAL BID #454 g 07/24/20 03/01/21 Rx topical ointment Saccharomyces boulardii 250 mg 500 mg PO BID cap 10/21/20 03/01/21 History capsule (Florastor) Wheelchair (Manual) See Rx Instructions .ROUTE 10/23/20 03/01/21 Rx .COMPLEX #1 ea Wheeled Walker See Rx Instructions .ROUTE 10/23/20 03/01/21 Rx .COMPLEX #1 ea levetiracetam 1,000 mg tablet 1,000 mg PO BID 90 Days #180 tab 01/11/21 03/01/21 Rx cholestyramine (with sugar) 4 gram 4 g PO BID #378 g 01/13/21 03/01/21 Rx oral powder (Questran) dexamethasone 4 mg tablet 2 mg PO BID #30 tab 02/03/21 03/01/21 Rx (Decadron) carbamazepine 200 mg 400 mg PO BID 90 Days #360 cap 03/01/21 03/01/21 Rx capsule,extended release [id number] cholecalciferol (vitamin D3) 25 25 mcg PO DAILY 03/01/21 03/01/21 History mcg (1,000 unit) tablet (Vitamin D3) 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, bilateral Drug abuse History of brain tumor (2014) R frontal astrocytoma, s/p removal Left hemiparesis Noncompliance with medication regimen Right frontal lobe mass Seizure disorder Surgical History History of craniotomy (2014) S/P inguinal hernia repair L S/P knee surgery R knee Family History Other Adopted Denies family history of Ovarian cancer Prostate cancer Bipolar disorder Myocardial infarction Colorectal cancer Social History Smoking Status: Current every day smoker Tobacco Type: Cigarettes Age Started Using Tobacco: 18; packs per day: 1; Cigarettes Per Day: 20; Second Hand Exposure: No; Hx Alcohol Use: Yes Alcohol type: beer Alcohol Intake Frequency: Monthly or Less Alcohol Intake Frequency Comment: maybe a beer a month Hx Substance Use: Yes Non-Prescribed Medications: Marijuana Preferred Language: Welsh Visual Impairment: Limited Hearing Ability: Normal Wood Model Maker Required: No Beliefs That Will Affect Care: None marital status: marital status details: common-law marriage Current Living Situation: Significant Other current occupational status: disabled How many Children do You have: 3 How many Children do You have Comment: 3 grown sons Feels Safe at Home: Yes Childhood Exposure to Second-Hand Smoke: Yes caffeine: Yes during the past year weight has: remained stable Dental Care, Regularly: No Physical Activity Frequency: Daily Seatbelt Use: always Sunscreen Use: Yes Review of Systems Review of Systems: REVIEW OF SYSTEMS: Constitutional: (+) fever, sweats or chills Eyes: No diplopia, no worsening or blurred vision ENT: normal hearing, no trouble swallowing Respiratory: No cough, sputum, dyspnea at rest or on exertion Cardiovascular: No chest pain, tightness or palpitations Abdomen: No pain, nausea, vomiting, diarrhea or constipation Musculoskeletal: N(+) left shoulder chronic dislocation/pain, chronic left sided weakness with left hand contracture, No otherjoint pain, calf pain, swelling Neurologic: (+) left sided weakness, numbness/tingling, or balance problems Psychiatric: No anxiety or depression Skin: (+) mild erythema to left testicular, No rash or itch Physical Exam Physical Exam: PHYSICAL EXAM: General: awake, alert, no apparent distress Head: Normocephalic, atraumatic ENT: PERRL, EOMI, no pharyngeal exudate, mucous membranes moist Neuro: AAO x 3, speech clear and appropriate, strength intact bilaterally 5/5, sensation intact and equal all extremities and dermatomes, no pronator drift Chest: equal rise and fall of the chest, no accessory muscle use, no heaves or thrills, Clear to auscultation, on room air, Cardiac: Regular rate and rhythm, telemetry reviewed, skin warm dry, cap refill <3 seconds, peripheral pulses +2 no JVD, no murmur, no JVD, no edema GI: NABS x 4 quadrants, soft, nontender to palpation, no rebound, guarding or tenderness : Spontaneously voiding, no pain, no CVA tenderness, Extremities: Normal inspection, no peripheral edema or erythema, calfs nontender to palpation Psych: Normal mood and affect Skin: no rash or erythema Results & Data Results & Data ([facility]) Vital Signs (Past 12 Hours) Vital Signs Temp Pulse Pulse Resp BP BP Pulse Ox 03/01/21 16:00 70 18 94/60 L 97 03/01/21 14:00 82 18 98/51 L 95 03/01/21 12:00 92 H 16 107/50 L 96 03/01/21 10:36 38.4 C H 92 H 18 117/65 95 Laboratory Results Abnormal lab results 03/01/21 03/01/21 03/01/21 Range/Units 11:26 11:26 15:25 WBC 20.02 H (4.8-10.8) K/uL RBC 4.34 L (4.7-6.1) M/uL Hgb 13.8 L (14.0-18.0) g/dL Hct 40.2 L (42-52) % Neut # (Auto) 17.25 H (1.4-6.5) K/uL [place] # (Auto) 1.30 H (0.11-0.59) K/uL Immature Gran # (Auto) 0.05 H (0.00-0.02) K/uL Sodium 135 L (136-145) mmol/L Creatinine 0.50 L (0.6-1.4) mg/dl BUN/Creatinine Ratio 26.0 H (10-20) AST 11 L (13-39) U/L Lipase 8 L (11-82) U/L Ur Leukocyte Esterase Trace H (Negative) U Epithel Cells (Auto) 5-10 H (0-5) /lpf Diagnostic Findings Scrotum Ultrasound 03/01/21 10:36 SCROTAL ULTRASOUND CLINICAL HISTORY: Left sided pain. COMPARISON STUDY: None. TECHNIQUE: Grayscale and color and duplex Doppler sonography of the scrotum was performed. FINDINGS: The right testis measures 3.9 x 3 x 2.1 cm and the left measures 4.5 x 3.1 x 3 cm. There is asymmetric increased flow within the left testis. Bilateral dilated rete testes are incidentally noted. These are benign. There is a small complex left hydrocele. There is no sonographic evidence for epididymitis. No suspicious testicular masses are present. Numerous echogenic foci within the testes are noted. This represents microlithiasis. IMPRESSION: 1. Asymmetric increased flow within the left testis suggestive of orchitis. 2. Small, mildly complex left hydrocele. 3. Testicular microlithiasis. ACT 112: Negative or not required by law. Electronically signed by: Dong Vicente M.D. 03/01/2021 12:20 PM Abdomen/Pelvis CT 03/01/21 11:42 CT abd pelvis IV con only CLINICAL HISTORY: left sided pain, fever TECHNIQUE: Helical axial images of the abdomen and pelvis were obtained and displayed. Automated dose lowering techniques and/or adjustment according to patient size were utilized for this exam. This exam was performed with intravenous contrast. COMPARISON: None available at the time of this dictation. FINDINGS: Lower chest: Bibasilar atelectasis versus scarring is seen. Liver: Unremarkable. No focal lesions are seen. Gallbladder and biliary tree: No calcified gallstones. Normal caliber wall. No intra- or extrahepatic biliary ductal dilation. Pancreas: Unremarkable, no focal lesions. Spleen: Unremarkable. Adrenals: Unremarkable. Kidneys and ureters: A hypodensity is seen in the left kidney superior pole which does not measure simple fluid attenuation. This measures 16 mm in diameter. Bladder: Limited evaluation due to underdistention. Reproductive organs: Unremarkable. Bowel: Diverticulosis is seen without evidence of diverticulitis. The appendix is normal. There is a small hiatal hernia. Lymph nodes Retroperitoneal: Unremarkable. Mesenteric: Unremarkable. Pelvic: Subcentimeter lymph nodes are noted. Peritoneum: Normal. Vessels: Atherosclerotic calcifications are seen. Abdominal wall: Left fat containing inguinal hernia. Bones: Degenerative changes in the visualized spine. IMPRESSION: 1. No acute abnormalities are seen to explain left-sided pain and fever. No evidence of diverticulitis. No changes of pyelonephritis are seen. 2. There is a 16 mm hypodense lesion in the left kidney superior pole which is not measures simple fluid density. If not previously evaluated, nonemergent CT or MRI renal mass protocol can be performed. ACT 112: Negative or not required by law. Electronically signed by: Keith Asif M.D. 03/01/2021 1:16 PM Medications Administered Fentanyl Citrate (Fentanyl Citrate 100 Mcg/2 Ml Vial) 50 mcg IV Q15M PRN PRN Reason: Pain Stop: 03/15/21 10:35 Last Admin: 03/01/21 17:25 Dose: 50 mcg Documented by: [id number] Admin: 03/01/21 11:47 Dose: 50 mcg Documented by: [id number] Levofloxacin/Dextrose (Levaquin/D5w) 750 mg in 150 mls @ 100 mls/hr IV NOW STA Stop: 03/01/21 17:40 Last Admin: 03/01/21 16:16 Dose: 100 mls/hr Documented by: [id number] Discontinued Medications Acetaminophen (Acetaminophen 500 Mg Tab) 1,000 mg PO NOW STA Stop: 03/01/21 10:37 Last Admin: 03/01/21 11:42 Dose: 1,000 mg Documented by: [id number] Sodium Chloride (Nss 1000ml) 1,000 mls @ 999 mls/hr IV .Q1H1M STA Stop: 03/01/21 11:36 Last Infusion: 03/01/21 13:01 Dose: 0 mls/hr Documented by: [id number] Admin: 03/01/21 11:42 Dose: 999 mls/hr Documented by: [id number] Piperacillin Sod/Tazobactam Sod (Zosyn) 4.5 gm in 120 mls @ 240 mls/hr IV NOW ONE Stop: 03/01/21 12:12 Last Infusion: 03/01/21 13:21 Dose: 0 mls/hr Documented by: [id number] Admin: 03/01/21 12:44 Dose: 240 mls/hr Documented by: [id number] Sodium Chloride (Nss 1000ml) 1,000 mls @ 999 mls/hr IV .Q1H1M ONE Stop: 03/01/21 16:53 Last Admin: 03/01/21 16:11 Dose: 999 mls/hr Documented by: [id number] Ioversol (Optiray 320 100ml) 94 ml IV ONCE ONE Stop: 03/01/21 13:05 Last Admin: 03/01/21 13:05 Dose: 94 ml Documented by: [id number] Ondansetron HCl (Ondansetron Inj 2 Mg/Ml 2 Ml Vial) 4 mg IV NOW STA Stop: 03/01/21 10:37 Last Admin: 03/01/21 11:42 Dose: 4 mg Documented by: [id number] ECG Additional Comments: Normal sinus rhythm Right bundle branch block Abnormal ECG When compared with ECG of 09-DEC-2014 17:26, Right bundle branch block is now Present Code Status & VTE Plan Code Status CODE: FULL VTE: SCDs, Lovenox 40 mg sq daily VTE Prophylaxis Plan VTE Prophylaxis will be ordered: Yes Supervising Physician Co-Signing Physician Notes I supervised LUCIEN Minor on the care of this patient. I interviewed and examined the patient independently of him. The plan is as written in his note except for any following changes/exceptions: None 2 days of worsening scrotal pain with systemic symptoms today. Testicle is diffusely tender to light palpation. BP was a bit soft in the ED, now resolved with IV fluids. Will treat with ceftriaxone and levofloxacin to cover usual bugs. Follow cultures. PG Care Time/CCT Total # of Minutes Spent Total Time Spent with Patient: Total time spent is greater than 50% in coordination of care (as documented) at patient's floor/unit and/or counseling patient: Coding Level of Care Code 60965 Initial Inpt Care Lvl 3 Diagnoses Acute orchitis N45.2 Leukocytosis D72.829 Left hemiparesis G81.94 History of brain tumor Z87.898 Seizure disorder G40.909 Renal mass N28.89 Hypovolemia E86.1
[2021-03-01] MEDS ORDERED: dexAMETHasone 1 MG TAB PO ONE (17:15)
[2021-03-01] MEDS ORDERED: LACTATED RINGER'S 1,000 ML IV ONE (17:20)
[2021-03-01] MEDS ORDERED: oxyCODONE HCL IR 5 MG TAB (IMMEDIATE RELEASE) PO PRN (18:55)
[2021-03-01] MEDS ORDERED: IBUPROFEN 600 MG TAB PO PRN (18:55)
[2021-03-01] MEDS ORDERED: ACETAMINOPHEN 325 MG TAB PO PRN (18:55)
[2021-03-01] MEDS: ENOXAPARIN INJ 40 MG/0.4 ML SYR SQ SCH (21:28)
[2021-03-01] MEDS: levETIRAcetam 500 MG TAB PO SCH (21:28)
[2021-03-02 06:15] LABS: Basophils # (auto) 0.01 K/uL (0-0.2); Eosinophils # (auto) 0.02 K/uL (0-0.5); Eosinophils % (auto) 0.1 %; Hematocrit (blood only) 33.9 % (42-52); Hemoglobin 11.5 g/dL (14.0-18.0); Immature Granulocytes # (auto) 0.06 K/uL (0.00-0.02); Immature Granulocytes % (auto) 0.3 %; Lymphocytes # (auto) 1.57 K/uL (1.2-3.4); Mean Corpuscular Hemoglobin 31.6 pg (25-34); Mean Corpuscular Hgb Conc 33.9 g/dL (32-36); Mean Corpuscular Volume 93.1 fL (80-100); Mean Platelet Volume 8.6 fL (7.4-10.4); Monocytes # (auto) 1.51 K/uL (0.11-0.59); Monocytes % (auto) 6.8 %; Neutrophils # (auto) 19.16 K/uL (1.4-6.5); Neutrophils % (auto) 85.8 %; Platelet Count 174 K/uL (130-400); RDW Coefficient of Variation 12.7 % (11.5-14.5); RDW Standard Deviation 43.2 fL (36.4-46.3); Red Blood Count 3.64 M/uL (4.7-6.1); White Blood Count 22.33 K/uL (4.8-10.8)
[2021-03-02 06:32] LABS: BUN Creatinine Ratio 21.6 (10-20); Calcium 8.1 mg/dl (8.5-10.1); Creatinine Clr Calc Pharmacy 143.4 ml/min; Est GFR (African American) 130.7 ml/min; Est GFR (Non-African American) 112.8 ml/min; Magnesium 1.7 mg/dl (1.7-2.4); Potassium 3.6 mmol/L (3.5-5.1)
[2021-03-02] MEDS: ADVANCED PROBIOTIC 1250 MG CAPSULE PO SCH (08:48)
[2021-03-02] MEDS: levETIRAcetam 500 MG TAB PO SCH ×2 (08:48→21:30)
[2021-03-02] MEDS: dexAMETHasone 1 MG TAB PO SCH ×2 (08:49→21:31)
--- NOTE | 2021-03-02 11:21 | Urology Consultation ---
Date of Consultation March 02, 2021 Assessment & Plan (1) Acute orchitis: (2) Fever: (3) Renal mass: 66 yo M admitted for fever and acute orchitis. - Urology consulted for acute orchitis and hydrocele. - Plan of care reviewed with Dr. Pacheco, urologist family and consumer sciences teacher. - Patient afebrile overnight, lab work reviewed - creatinine 0.51, WBC 22.33; RPR nonreactive, GC/CT pending. - UA on admission not overly suspicious for infection. - Urine culture pending, blood cultures pending, 1/2 gram positive cocci clusters - continue IV abx per primary team. - Scrotal US reviewed and suggestive of left orchitis. - CTAP reviewed and incidentally noted a small left renal lesion - recommend dedicated imaging as outpatient. - No acute intervention warranted at this time. - Recommend continue antibiotics, scrotal support, ice, anti-inflammatories and pain management per primary service. - Voiding spontaneously, continue to monitor and bladder scan prn. - Discussed with patient that pain and swelling may take several weeks to improve/resolve. - Will arrange f/u with our service outpatient. - will sign off, please contact our service with any further questions/concerns. History of Present Illness Reason for Consultation: Acute orchitis, hydrocele Requesting Physician: Dr. Guzman Attending Physician: Mary Guzman MD History of Present Illness 66 yo M with past medical history of neoplasm of brain, s/p craniotomy, left hemiparesis, seizure disorder, alcohol and tobacco abuse, and asthma admitted for fever and acute orchitis. Patient presented to [facility] ED on 03/01/21 with left testicular pain and fever. Febrile on arrival, Tmax 38.4. Lab work independently reviewed. Creatinine 0.50, WBC 20.02, Hgb 13.8, Lactate 0.9. UA 1-5 WBCs, RBCs 0-4, Epithelials 5-10, negative for bacteria and nitrates. Urine and blood cultures collected and pending. RPR, GC/CT, and Hep C collected and pending. Covid testing negative. Scrotal US reviewed and suggests left orchitis, small mildly complex left hydrocele. CTAP reviewed and showed no acute abnormalities, incidentally noted a 16 mm hypodense lesion in the left kidney superior pole. ED course included IV fluids, Zosyn, Acetaminophen, Zofran, and Fentanyl. He was admitted to hospital medicine for further evaluation and management. Our service is consulted for acute orchitis and hydrocele. Chart review: Afebrile overnight Last febrile on 03/01 @ 18:59 (T 38.0) Creatinine 0.51 WBC 22.33 Hgb 11.5 Urine culture pending BCx pending, / prelim gram positive cocci clusters On IV Cetriaxone and Levofloxacin Imaging Scrotal US IMPRESSION: 1. Asymmetric increased flow within the left testis suggestive of orchitis. 2. Small, mildly complex left hydrocele. 3. Testicular microlithiasis. CTAP w IV con only IMPRESSION: 1. No acute abnormalities are seen to explain left-sided pain and fever. No gonsalo dence of diverticulitis. No changes of pyelonephritis are seen. 2. There is a 16 mm hypodense lesion in the left kidney superior pole which is not measures simple fluid density. If not previously evaluated, nonemergent CT or MRI renal mass protocol can be performed. Patient seen and examined at bedside this AM. He is sleeping on arrival, arouses easily to his name. Continues to have left testicular pain, rated 7/10 at present. Pain started about 2 days ago. Reports area is tender to the touch. Denies flank or abdominal pain. No nausea or vomiting. No fever or chills at present. He is voiding spontaneously into urinal. No dysuria or hematuria. Baseline urinary symptoms include: urinary frequency, nocturia x 3-4, urinary incontinence, stream fair, feels like he empties his bladder well most of the time. Denies prior urology evaluations. Denies known PSA screening. Denies personal or family history of stones. Reports he is adopted, but no known family history of malignancy. Offers no additional complaints at this time. Allergies Allergy/AdvReac Type Severity Reaction Status Date / Time phenytoin Allergy Intermediate Redness of Verified 03/01/21 15:01 Skin zonisamide AdvReac Intermediate Depression Verified 03/01/21 15:01 Home Medications Medication Instructions Recorded Confirmed Type folic acid 1 mg tablet 1 mg PO BID #30 tab 09/11/18 03/01/21 History multivitamin (Multiple Vitamins) 1 tab PO DAILY 09/11/18 03/01/21 History vitamin B complex (B 1 tab PO DAILY 09/11/18 03/01/21 History Complex-Vitamin B12) glucosamine sulfate 2KCl 1,000 mg 2,000 mg PO BID 03/14/19 03/01/21 History tablet (Glucosamine Relief) triamcinolone acetonide 0.1 % 1 applic TOPICAL BID #454 g 07/24/20 03/01/21 Rx topical ointment Saccharomyces boulardii 250 mg 500 mg PO BID cap 10/21/20 03/01/21 History capsule (Florastor) Wheelchair (Manual) See Rx Instructions .ROUTE 10/23/20 03/01/21 Rx .COMPLEX #1 ea Wheeled Walker See Rx Instructions .ROUTE 10/23/20 03/01/21 Rx .COMPLEX #1 ea levetiracetam 1,000 mg tablet 1,000 mg PO BID 90 Days #180 tab 01/11/21 03/01/21 Rx cholestyramine (with sugar) 4 gram 4 g PO BID #378 g 01/13/21 03/01/21 Rx oral powder (Questran) dexamethasone 4 mg tablet 2 mg PO BID #30 tab 02/03/21 03/01/21 Rx (Decadron) carbamazepine 200 mg 400 mg PO BID 90 Days #360 cap 03/01/21 03/01/21 Rx capsule,extended release [id number] cholecalciferol (vitamin D3) 25 25 mcg PO DAILY 03/01/21 03/01/21 History mcg (1,000 unit) tablet (Vitamin D3) Patient History Medical History AA (alcohol abuse) Asthma Brain tumor (2014) R frontal lobe astrocytoma Degenerative arthritis of knee, bilateral Drug abuse History of brain tumor (2014) R frontal astrocytoma, s/p removal Left hemiparesis Noncompliance with medication regimen Right frontal lobe mass Seizure disorder Surgical History History of craniotomy (2014) S/P inguinal hernia repair L S/P knee surgery R knee Family History Other Adopted Denies family history of Ovarian cancer Prostate cancer Bipolar disorder Myocardial infarction Colorectal cancer Social History Smoking Status: Current every day smoker Tobacco Type: Cigarettes Age Started Using Tobacco: 18; packs per day: 1; Cigarettes Per Day: 20; Second Hand Exposure: Yes; Do You Dip or Chew Tobacco: No; Tobacco Cessation Education Requested by Patient: No Hx Alcohol Use: No Hx Substance Use: Yes Non-Prescribed Medications: Marijuana Last Used Substance Other:: Marajuana daily use. Preferred Language: Croatian Communication Ability: Effective Visual Impairment: Limited Hearing Ability: Normal Organizational Development Director Required: No Beliefs That Will Affect Care: None marital status: marital status details: common-law marriage Current Living Situation: Spouse current occupational status: disabled How many Children do You have: 3 How many Children do You have Comment: 3 grown sons Other Information That Helps Us Care for You: No Feels Safe at Home: Yes Safety Concerns: Feels Safe At This Time Childhood Exposure to Second-Hand Smoke: Yes caffeine: Yes during the past year weight has: remained stable Dental Care, Regularly: No Physical Activity Frequency: Daily Seatbelt Use: always Sunscreen Use: Yes Assistive Devices: Cane, Glasses and Walker Review of Systems Constitutional: as per Subjective / HPI Eyes: + corrective lenses Ear, Nose, Mouth, Throat: no problem reported Respiratory: no problem reported Cardiovascular: no problem reported Gastrointestinal: as per Subjective / HPI Genitourinary: + as per Subjective / HPI Musculoskeletal: as per Subjective / HPI Integumentary: no problem reported Neurologic: as per Subjective / HPI Physical Exam Constitutional: well developed, well nourished and comfortable; no acute distress Respiratory: normal respiratory effort; no respiratory distress and no labored breathing Cardiovascular: Extremities: no pedal edema Gastrointestinal (Abdomen): Inspection/Auscultation: abdomen normal to inspection; abdomen not distended Percussion/Palpation: abdomen soft; abdomen nontender Neurologic: awake Psychiatric: Orientation: alert and oriented x 3 Genitourinary: Circumcised penis, left testis tender to palpation, edematous, slightly erythematous and warm. Results & Data ([facility]) Vital Signs (Past 12 Hours) Vital Signs Temp Pulse Resp BP Pulse Ox 03/02/21 07:12 37.5 C 66 16 115/62 96 PG Care Time/CCT Total # of Minutes Spent Total Time Spent with Patient: Total time spent is greater than 50% in coordination of care (as documented) at patient's floor/unit and/or counseling patient: Coding Level of Care Code 80061 Initial Inpt Care Lvl 2 Diagnoses Acute orchitis N45.2 Fever R50.9 Fever type: unspecified Renal mass N28.89 (1) Fever Fever type: unspecified Qualified Code(s): R50.9 - Fever, unspecified
[2021-03-02] MEDS ORDERED: VANCOMYCIN CONSULT ACTIVE PRN (12:00)
[2021-03-02] MEDS ORDERED: VANCOMYCIN HCL 1,750 MG in SODIUM CHLORIDE 0.9% 500 ML IV ONE (12:30)
--- NOTE | 2021-03-02 13:45 | Pharmacy Report ---
Pharmacy Vanc AUC Short Note - Date of Service March 02, 2021 - Assessment & Plan Assessment 66 year old M receiving vancomycin for treatment of bacteremia. Pertinent microbiologic data includes: blood culture (03/01/21) culture growing GP cocc in clusters (anaerobic cultures). Day # 1 of antimicrobial therapy. Plan Vancomycin * AUC/SUAD is the preferred PK/PD target for vancomycin * AUC guided dosing is effective and associated with decreased risk of nephro toxicity compared to traditional trough targets * vancomycin 1000 mg IV q8 is predicted to achieve target AUC/SUAD of 400-600 mg/L.hr and may be associated with a 14 % risk of nephrotoxicity * Trough to be ordered for 03/04/21 prior to the 0600 dose Pharmacy will continue to follow and will adjust dose/frequency as necessary. Thank you.
[2021-03-02] MEDS ORDERED: levoFLOXacin/D5W 500 MG/100 ML BAG IV SCH (15:00)
--- NOTE | 2021-03-02 15:23 | Hospitalist Progress Note ---
Date of Service March 02, 2021 Assessment & Plan (1) Acute orchitis: Plan: Presents to the hospital on account of testicular pain. An ultrasound of the scrotum showed evidence of acute orchitis Urology was consulted, they recommend scrotal support anti-inflammatory. Continued antibiotics. 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 - Follow up with MRI or CT with renal mass protocol for further evaluation recommended (6) Hypovolemia: Plan: Mild with decreased PO intake at home - borderline sodium, dark concentrated urine - LR at 80 ml/hour overnight x1 liter Admission and Anticipated Discharge Date Admission Date: March 01, 2021 Subjective patient seen and examined, feels somewhat better Review of Systems Review of Systems: All systems reviewed are negative, apart from the ones contained in the history. Physical Exam Physical Exam: The patient is awake, alert and oriented 3, well developed and well nourished, normocephalic and atraumatic, lying in bed and in no acute distress. HEENT--PERRL, EOMI, mucous membranes and oropharynx mildly dry Neck--supple. No JVD. No bruits. Thyroid normal, trachea midline, no adenopathy. Heart--normal S1 and S2. No murmurs, rubs or gallops. Lungs--clear bilaterally, no respiratory distress, no accessory muscle use. Abdomen--normal bowel sounds and soft. Mild epigastric and left sided abdominal pain Extremities--no cyanosis or clubbing. No edema. Dermatologic--normal skin turgor, normal color, no abnormal lymph nodes, no rash. Neurologic--cranial nerves II through XII grossly intact. Rheumatologic--normal range of motion. Psychiatric--normal affect. Results & Data Results & Data ([facility]) Vital Signs (Past 12 Hours) Vital Signs Temp Pulse Resp BP Pulse Ox 03/02/21 07:12 99.5 F 66 16 115/62 96 PG Care Time/CCT Total # of Minutes Spent Total Time Spent with Patient: Total time spent is greater than 50% in coordination of care (as documented) at patient's floor/unit and/or counseling patient: Coding Level of Care Code 34318 Subseq Hosp Care Lvl 2 Diagnoses Acute orchitis N45.2 Left hemiparesis G81.94 History of brain tumor Z87.898 Seizure disorder G40.909 Renal mass N28.89 Hypovolemia E86.1 Time Spent (min) 35
[2021-03-02] MEDS ORDERED: cefTRIAXone SODIUM 2,000 MG in DEXTROSE 5% 50 ML IV SCH (18:00)
[2021-03-02] MEDS: cefTRIAXone SODIUM 2,000 MG in DEXTROSE 5% 50 ML IV SCH (18:07)
[2021-03-02] MEDS: ENOXAPARIN INJ 40 MG/0.4 ML SYR SQ SCH (21:31)
[2021-03-02] MEDS: VANCOMYCIN HCL 1,000 MG in SODIUM CHLORIDE 0.9% 250 ML IV SCH (23:31)
[2021-03-03] MEDS: VANCOMYCIN HCL 1,000 MG in SODIUM CHLORIDE 0.9% 250 ML IV SCH ×3 (06:04→21:11)
[2021-03-03 07:13] LABS: Basophils # (auto) 0.02 K/uL (0-0.2); Basophils % (auto) 0.1 %; Eosinophils # (auto) 0.03 K/uL (0-0.5); Eosinophils % (auto) 0.2 %; Hematocrit (blood only) 34.4 % (42-52); Hemoglobin 11.5 g/dL (14.0-18.0); Immature Granulocytes # (auto) 0.04 K/uL (0.00-0.02); Immature Granulocytes % (auto) 0.3 %; Mean Corpuscular Hemoglobin 31.6 pg (25-34); Mean Corpuscular Hgb Conc 33.4 g/dL (32-36); Mean Corpuscular Volume 94.5 fL (80-100); Mean Platelet Volume 8.5 fL (7.4-10.4); Monocytes # (auto) 1.01 K/uL (0.11-0.59); Monocytes % (auto) 6.9 %; Neutrophils # (auto) 11.87 K/uL (1.4-6.5); Neutrophils % (auto) 81.5 %; Platelet Count 157 K/uL (130-400); RDW Coefficient of Variation 12.6 % (11.5-14.5); RDW Standard Deviation 43.4 fL (36.4-46.3); Red Blood Count 3.64 M/uL (4.7-6.1); White Blood Count 14.57 K/uL (4.8-10.8)
[2021-03-03 07:48] LABS: Calcium 8.2 mg/dl (8.5-10.1); Creatinine Clr Calc Pharmacy 146.3 ml/min; Est GFR (African American) 131.8 ml/min; Est GFR (Non-African American) 113.7 ml/min; Magnesium 1.7 mg/dl (1.7-2.4); Potassium 3.6 mmol/L (3.5-5.1)
[2021-03-03] MEDS: levETIRAcetam 500 MG TAB PO SCH ×2 (07:49→20:06)
[2021-03-03] MEDS: dexAMETHasone 1 MG TAB PO SCH ×2 (07:49→20:06)
[2021-03-03] MEDS: ADVANCED PROBIOTIC 1250 MG CAPSULE PO SCH (07:50)
--- NOTE | 2021-03-03 13:56 | Hospitalist Progress Note ---
Date of Service March 03, 2021 Assessment & Plan (1) Acute orchitis: Plan: Presents to the hospital on account of testicular pain. An ultrasound of the scrotum showed evidence of acute orchitis Urology was consulted, they recommend scrotal support anti-inflammatory. 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 - Follow up with MRI or CT with renal mass protocol for further evaluation recommended (6) Hypovolemia: Plan: resolved Admission and Anticipated Discharge Date Admission Date: March 01, 2021 Subjective patient seen and examined, feels somewhat better, denies chills Review of Systems Review of Systems: All systems reviewed are negative, apart from the ones contained in the history. Physical Exam Physical Exam: The patient is awake, alert and oriented 3, well developed and well nourished, normocephalic and atraumatic, lying in bed and in no acute distress. HEENT--PERRL, EOMI, mucous membranes and oropharynx mildly dry Neck--supple. No JVD. No bruits. Thyroid normal, trachea midline, no adenopathy. Heart--normal S1 and S2. No murmurs, rubs or gallops. Lungs--clear bilaterally, no respiratory distress, no accessory muscle use. Abdomen--normal bowel sounds and soft. Mild epigastric and left sided abdominal pain Extremities--no cyanosis or clubbing. No edema. Dermatologic--normal skin turgor, normal color, no abnormal lymph nodes, no rash. Neurologic--cranial nerves II through XII grossly intact. Rheumatologic--normal range of motion. Psychiatric--normal affect. Results & Data Results & Data ([facility]) Vital Signs (Past 12 Hours) Vital Signs Temp Pulse Resp BP Pulse Ox 03/03/21 07:11 97.7 F 57 L 16 129/72 97 PG Care Time/CCT Total # of Minutes Spent Total Time Spent with Patient: Total time spent is greater than 50% in coordination of care (as documented) at patient's floor/unit and/or counseling patient: Coding Level of Care Code 15309 Subseq Hosp Care Lvl 2 Diagnoses Acute orchitis N45.2 Left hemiparesis G81.94 History of brain tumor Z87.898 Seizure disorder G40.909 Renal mass N28.89 Hypovolemia E86.1 Time Spent (min) 35
[2021-03-03 14:30] LABS: Chlamydia Trach RNA NOT DETECTED (NOT DETECTED); GC (Neis gonorrhoeae) RNA NOT DETECTED (NOT DETECTED)
[2021-03-03] MEDS: cefTRIAXone SODIUM 2,000 MG in DEXTROSE 5% 50 ML IV SCH (18:49)
[2021-03-03] MEDS: ENOXAPARIN INJ 40 MG/0.4 ML SYR SQ SCH (20:05)
[2021-03-04] MEDS ORDERED: VANCOMYCIN TROUGH ONE (05:30)
[2021-03-04] MEDS: VANCOMYCIN HCL 1,000 MG in SODIUM CHLORIDE 0.9% 250 ML IV SCH (05:34)
[2021-03-04 06:42] LABS: Basophils # (auto) 0.02 K/uL (0-0.2); Basophils % (auto) 0.3 %; Eosinophils % (auto) 1.4 %; Hematocrit (blood only) 34.1 % (42-52); Hemoglobin 11.5 g/dL (14.0-18.0); Immature Granulocytes # (auto) 0.01 K/uL (0.00-0.02); Immature Granulocytes % (auto) 0.1 %; Lymphocytes # (auto) 1.41 K/uL (1.2-3.4); Lymphocytes % (auto) 19.6 %; Mean Corpuscular Hemoglobin 31.4 pg (25-34); Mean Corpuscular Hgb Conc 33.7 g/dL (32-36); Mean Corpuscular Volume 93.2 fL (80-100); Mean Platelet Volume 9.8 fL (7.4-10.4); Monocytes # (auto) 0.62 K/uL (0.11-0.59); Monocytes % (auto) 8.6 %; Neutrophils # (auto) 5.02 K/uL (1.4-6.5); Platelet Count 155 K/uL (130-400); RDW Coefficient of Variation 12.5 % (11.5-14.5); RDW Standard Deviation 42.7 fL (36.4-46.3); Red Blood Count 3.66 M/uL (4.7-6.1); White Blood Count 7.18 K/uL (4.8-10.8)
[2021-03-04 07:02] LABS: BUN Creatinine Ratio 26.5 (10-20); Calcium 8.2 mg/dl (8.5-10.1); Creatinine Clr Calc Pharmacy 149.2 ml/min; Est GFR (African American) 132.9 ml/min; Est GFR (Non-African American) 114.7 ml/min; Magnesium 1.7 mg/dl (1.7-2.4); Potassium 3.8 mmol/L (3.5-5.1)
[2021-03-04] MEDS: ADVANCED PROBIOTIC 1250 MG CAPSULE PO SCH (08:09)
[2021-03-04] MEDS: levETIRAcetam 500 MG TAB PO SCH ×2 (08:10→21:04)
[2021-03-04] MEDS: dexAMETHasone 1 MG TAB PO SCH ×2 (08:10→21:04)
--- NOTE | 2021-03-04 14:06 | Hospitalist Progress Note ---
Date of Service March 04, 2021 Assessment & Plan (1) Acute orchitis: Plan: Presents to the hospital on account of testicular pain. An ultrasound of the scrotum showed evidence of acute orchitis Urology was consulted, they recommend scrotal support anti-inflammatory. 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 - Follow up with MRI or CT with renal mass protocol for further evaluation recommended (6) Hypovolemia: Plan: resolved Plan: patient says he is unable to adequately take care of himself at home Plan is for SNF when accepted Admission and Anticipated Discharge Date Admission Date: March 01, 2021 Subjective patient seen and examined, feels much better, denies chills Review of Systems Review of Systems: All systems reviewed are negative, apart from the ones contained in the history. Physical Exam Physical Exam: The patient is awake, alert and oriented 3, well developed and well nourished, normocephalic and atraumatic, lying in bed and in no acute distress. HEENT--PERRL, EOMI, mucous membranes and oropharynx mildly dry Neck--supple. No JVD. No bruits. Thyroid normal, trachea midline, no adenopa thy. Heart--normal S1 and S2. No murmurs, rubs or gallops. Lungs--clear bilaterally, no respiratory distress, no accessory muscle use. Abdomen--normal bowel sounds and soft. Mild epigastric and left sided abdominal pain Extremities--no cyanosis or clubbing. No edema. Dermatologic--normal skin turgor, normal color, no abnormal lymph nodes, no rash. Neurologic--cranial nerves II through XII grossly intact. Rheumatologic--normal range of motion. Psychiatric--normal affect. Results & Data Results & Data ([facility]) Vital Signs (Past 12 Hours) Vital Signs Temp Pulse Resp BP BP Pulse Ox 03/04/21 07:50 98.1 F 49 L 18 130/78 97 03/04/21 07:11 98.2 F 53 L 16 137/70 98 PG Care Time/CCT Total # of Minutes Spent Total Time Spent with Patient: Total time spent is greater than 50% in coordination of care (as documented) at patient's floor/unit and/or counseling patient: Coding Level of Care Code 55142 Subseq Hosp Care Lvl 2 Diagnoses Acute orchitis N45.2 Left hemiparesis G81.94 History of brain tumor Z87.898 Seizure disorder G40.909 Renal mass N28.89 Hypovolemia E86.1 Time Spent (min) 35
[2021-03-04] MEDS: cefTRIAXone SODIUM 2,000 MG in DEXTROSE 5% 50 ML IV SCH (17:35)
[2021-03-04] MEDS: ENOXAPARIN INJ 40 MG/0.4 ML SYR SQ SCH (21:04)
[2021-03-05 07:59] LABS: Hematocrit (blood only) 34.6 % (42-52); Hemoglobin 11.9 g/dL (14.0-18.0); Mean Corpuscular Hemoglobin 31.4 pg (25-34); Mean Corpuscular Hgb Conc 34.4 g/dL (32-36); Mean Corpuscular Volume 91.3 fL (80-100); Mean Platelet Volume 8.4 fL (7.4-10.4); Platelet Count 194 K/uL (130-400); RDW Coefficient of Variation 12.1 % (11.5-14.5); RDW Standard Deviation 40.5 fL (36.4-46.3); Red Blood Count 3.79 M/uL (4.7-6.1); White Blood Count 5.69 K/uL (4.8-10.8)
[2021-03-05 08:29] LABS: BUN Creatinine Ratio 29.4 (10-20); Calcium 8.3 mg/dl (8.5-10.1); Creatinine Clr Calc Pharmacy 143.4 ml/min; Est GFR (African American) 130.7 ml/min; Est GFR (Non-African American) 112.8 ml/min; Potassium 3.6 mmol/L (3.5-5.1)
[2021-03-05] MEDS: ADVANCED PROBIOTIC 1250 MG CAPSULE PO SCH (08:46)
[2021-03-05] MEDS: dexAMETHasone 1 MG TAB PO SCH ×2 (08:46→21:03)
[2021-03-05] MEDS: levETIRAcetam 500 MG TAB PO SCH ×2 (08:47→21:02)
--- NOTE | 2021-03-05 12:11 | Hospitalist Progress Note ---
Date of Service March 05, 2021 Assessment & Plan (1) Acute orchitis: Plan: Presents to the hospital on account of testicular pain. - An ultrasound of the scrotum showed evidence of acute orchitis - Urology was consulted, they recommend scrotal support anti-inflammatory. - Initially on Vancomycin and ceftriaxone - One bottle of blood cultures positive for coagulase negative staph, most likely contaminant - Cultures have remained negative so far - Patient is much improved clinically, WBC is now wnl, was >20k on admission - Vancomycin has been discontinued but still on Rocephin - Continue scrotal support and pain relief - Abx can be converted to oral Cipro to completed upon d/c for total of 10 days (2) Left hemiparesis: Plan: Chronic following astrocytoma resection in 2004 - Walks with cane and has wheelchair at home - PT/OT consult (3) History of brain tumor: Plan: 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 - Follow up with MRI or CT with renal mass protocol for further evaluation recommended - Will order with MRI renal mass protocol while pt here to avoid delaying diagnosis/referral for treatment (6) Hypovolemia: Plan: resolved Plan: patient says he is unable to adequately take care of himself at home Plan is for SNF when accepted--referrals sent to [facility]. sophie cordoba may be able to take tomorrow. Admission and Anticipated Discharge Date Admission Date: March 01, 2021 Subjective Patient seen on rounds this morning. He is resting comfortably in bed. Appears to have condom catheter in place. He denies fever, chills, chest pain, dyspnea, or testicular pain. He reports testicular swelling while still present seems to be improving. Review of Systems Review of Systems: All systems reviewed are negative, apart from the ones contained in the HPI. Physical Exam Physical Exam: GENERAL: 66 yo thin WM. NAD. LUNGS: Clear to auscultation bilaterally. No accessory muscle use. No W/R/R. CARDIOVASCULAR: Regular rate and rhythm. No M/G/R. No JVD. ABDOMEN: Soft, non-tender and non-distended. No palpable masses. Bowel sounds normoactive x 4 quad. : condom catheter overtop penis. testicular swelling, no obvious erythema. EXTREMITIES: No edema. Non-tender. Peripheral pulses +2/4. NEUROLOGIC: A&O x3. PSYCHIATRIC: Cooperative. Appropriate mood and affect. SKIN: Warm, dry, intact. No rashes or lesions. Results & Data Results & Data ([facility]) Vital Signs (Past 12 Hours) Vital Signs Temp Pulse Resp BP Pulse Ox 03/05/21 07:01 36.8 C 56 L 18 126/58 L 97 Laboratory Results 03/05/21 07:36 03/05/21 07:36 PG Care Time/CCT Total # of Minutes Spent Total Time Spent with Patient: Total time spent is greater than 50% in coordination of care (as documented) at patient's floor/unit and/or counseling patient: Coding Level of Care Code 01306 Subseq Hosp Care Lvl 2 Diagnoses Acute orchitis N45.2 Left hemiparesis G81.94 History of brain tumor Z87.898 Seizure disorder G40.909 Renal mass N28.89 Hypovolemia E86.1
[2021-03-05] MEDS: cefTRIAXone SODIUM 2,000 MG in DEXTROSE 5% 50 ML IV SCH (17:24)
[2021-03-05] MEDS ORDERED: GADOBUTROL 65ML VIAL IV ONE (20:32)
[2021-03-05] MEDS: ENOXAPARIN INJ 40 MG/0.4 ML SYR SQ SCH (21:03)
--- NOTE | 2021-03-05 22:00 | Magnetic Resonance Report ---
MR abdomen wo/w con CLINICAL HISTORY: L kidney mass COMPARISON: Comparison is made to CT abdomen pelvis 03/01/2021 TECHNIQUE: Multiplanar multisequence images were obtained of the abdomen with and without the adminis tration of contrast. FINDINGS: Exam is limited by patient motion. Lower chest: No acute abnormality Liver: Unremarkable. No focal lesions are seen. Gallbladder and biliary tree: No calcified gallstones. Normal caliber wall. No intra- or extrahepatic biliary ductal dilation. Pancreas: Unremarkable, no focal lesions. Spleen: Unremarkable. Adrenals: Unremarkable. Kidneys and ureters: There is an 11 mm T2 hyperintense, T2 hypointense nonenhancing lesion compatible with a cyst. Incidentally noted is invagination of the renal contour at this level, this may represe nt chronic scarring. Bowel: Unremarkable. Lymph nodes Retroperitoneal: Unremarkable. Mesenteric: Unremarkable. Peritoneum: Normal Vessels: Unremarkable. Abdominal wall: Unremarkable. Bones: Degenerative changes in the visualized spine. IMPRESSION: Previously noted hypodensity in the left kidney represents a cystic lesion associated with a likely c ortical scar. This is not a suspicious lesion and no further follow-up is required. ACT 112: Negative or not required by law. Electronically signed by: Keith Asif M.D. 03/05/2021 9:59 PM
[2021-03-06] MEDS: levETIRAcetam 500 MG TAB PO SCH ×2 (07:47→21:13)
[2021-03-06] MEDS: dexAMETHasone 1 MG TAB PO SCH ×2 (07:47→21:12)
[2021-03-06] MEDS: ADVANCED PROBIOTIC 1250 MG CAPSULE PO SCH (07:48)
--- NOTE | 2021-03-06 12:55 | Hospitalist Progress Note ---
Date of Service March 06, 2021 Assessment & Plan (1) Acute orchitis: Plan: Presents to the hospital on account of testicular pain. - An ultrasound of the scrotum showed evidence of acute orchitis - Urology was consulted, they recommend scrotal support anti-inflammatory. - Initially on Vancomycin and ceftriaxone - One bottle of blood cultures positive for coagulase negative staph, most likely contaminant - Cultures have remained negative so far - Patient is much improved clinically, WBC is now wnl, was >20k on admission - Vancomycin has been discontinued but still on Rocephin - Continue scrotal support and pain relief - Abx can be converted to oral Cipro to completed upon d/c for total of 10 days (2) Left hemiparesis: Plan: Chronic following astrocytoma resection in 2004 - Walks with cane and has wheelchair at home - PT/OT consult (3) History of brain tumor: Plan: 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 - Follow up with MRI or CT with renal mass protocol for further evaluation recommended - Will order with MRI renal mass protocol while pt here to avoid delaying diagnosis/referral for treatment Plan: patient says he is unable to adequately take care of himself at home Plan is for SNF w/ rehab emphasis. Ariel Humphrey can take Monday. Updated pt's significant other, Bel today. Admission and Anticipated Discharge Date Admission Date: March 01, 2021 Subjective Patient seen on rounds this morning. He is resting comfortably in bed. Appears to still have condom catheter in place. He denies fever, chills, chest pain, dyspnea, or testicular pain. He reports testicular swelling while still present seems to be improving. Review of Systems Review of Systems: All systems reviewed are negative, apart from the ones contained in the HPI. Physical Exam Physical Exam: GENERAL: 66 yo thin WM. NAD. LUNGS: Clear to auscultation bilaterally. No accessory muscle use. No W/R/R. CARDIOVASCULAR: Regular rate and rhythm. No M/G/R. No JVD. ABDOMEN: Soft, non-tender and non-distended. BS normal x 4 quad. : condom catheter overtop penis. testicular swelling, no obvious erythema. EXTREMITIES: No edema. Non-tender. Peripheral pulses +2/4. NEUROLOGIC: A&O x3. PSYCHIATRIC: Cooperative. Appropriate mood and affect. SKIN: Warm, dry, intact. No rashes or lesions. Results & Data Results & Data ([facility]) Vital Signs (Past 12 Hours) Vital Signs Temp Pulse Resp BP Pulse Ox 03/06/21 07:22 36.6 C 53 L 18 146/70 H 96 Laboratory Results No labs today Diagnostic Findings Abdomen MRI 03/05/21 12:15 MR abdomen wo/w con CLINICAL HISTORY: L kidney mass COMPARISON: Comparison is made to CT abdomen pelvis 03/01/2021 TECHNIQUE: Multiplanar multisequence images were obtained of the abdomen with and without the administration of contrast. FINDINGS: Exam is limited by patient motion. Lower chest: No acute abnormality Liver: Unremarkable. No focal lesions are seen. Gallbladder and biliary tree: No calcified gallstones. Normal caliber wall. No intra- or extrahepatic biliary ductal dilation. Pancreas: Unremarkable, no focal lesions. Spleen: Unremarkable. Adrenals: Unremarkable. Kidneys and ureters: There is an 11 mm T2 hyperintense, T2 hypointense nonenhancing lesion compatible with a cyst. Incidentally noted is invagination of the renal contour at this level, this may represent chronic scarring. Bowel: Unremarkable. Lymph nodes Retroperitoneal: Unremarkable. Mesenteric: Unremarkable. Peritoneum: Normal Vessels: Unremarkable. Abdominal wall: Unremarkable. Bones: Degenerative changes in the visualized spine. IMPRESSION: Previously noted hypodensity in the left kidney represents a cystic lesion associated with a likely cortical scar. This is not a suspicious lesion and no further follow-up is required. ACT 112: Negative or not required by law. Electronically signed by: Keith Asif M.D. 03/05/2021 9:59 PM PG Care Time/CCT Total # of Minutes Spent Total Time Spent with Patient: Total time spent is greater than 50% in coordination of care (as documented) at patient's floor/unit and/or counseling patient: Coding Level of Care Code 64684 Subseq Hosp Care Lvl 2 Diagnoses Acute orchitis N45.2 Left hemiparesis G81.94 History of brain tumor Z87.898 Seizure disorder G40.909 Renal mass N28.89
[2021-03-06] MEDS: cefTRIAXone SODIUM 2,000 MG in DEXTROSE 5% 50 ML IV SCH (17:24)
[2021-03-06] MEDS: ENOXAPARIN INJ 40 MG/0.4 ML SYR SQ SCH (21:13)
[2021-03-07] MEDS: ADVANCED PROBIOTIC 1250 MG CAPSULE PO SCH (07:32)
[2021-03-07] MEDS: dexAMETHasone 1 MG TAB PO SCH ×2 (07:32→21:38)
[2021-03-07] MEDS: levETIRAcetam 500 MG TAB PO SCH ×2 (07:32→21:38)
--- NOTE | 2021-03-07 18:44 | Hospitalist Progress Note ---
Date of Service March 07, 2021 Assessment & Plan (1) Acute orchitis: Plan: Presents to the hospital on account of testicular pain. - An ultrasound of the scrotum showed evidence of acute orchitis - Urology was consulted, they recommend scrotal support anti-inflammatory. - Initially on Vancomycin and ceftriaxone - One bottle of blood cultures positive for coagulase negative staph, most likely contaminant - Urine culture showing no growth - Patient is much improved clinically, WBC is now wnl, was >20k on admission - Vancomycin has been discontinued. Rocephin transitioned to oral Cipro. Will need total of 10 days of treatment - Continue scrotal support and pain relief - Currently without scrotal pain (2) Debility: Plan: - Patient has been seen by PT/OT and is recommending rehab - Patient agreeable and actually preferring this plan - Typically walks with a quad cane and utilizes a wheelchair at home - Case management on board (3) Left hemiparesis: Plan: Chronic following astrocytoma resection in 2004 - Walks with cane and has wheelchair at home - PT/OT on board (4) History of brain tumor: Plan: Astrocytoma 2005 follows with neurology - most recent MRI of brain performed in Jan 2021-consistent with recurrent/progressive tumor - Remains on Decadron 2mg orally BID - Follows with neurology (5) Seizure disorder: Plan: Secondary to astrocytoma/resection - Continue with Keppra and Carbamazepine - Follows with neurology (6) Renal mass: Plan: Incidental finding on CT scan of abdomen and pelvis - 16mm hypodensity is seen in the left kidney superior pole which does not measure simple fluid attenuation. - MRI showing cortical scar with no suspicious lesion (7) Hypotension: Plan: -BP 90/46 today without S/S sepsis syndrome -Patient seems to be asymptomatic -In review of old records, patient's blood pressure fluctuates. -He is not on any oral antihypertensive agents -Suspect this is his baseline Plan: patient says he is unable to adequately take care of himself at home (he lives with his ex-) Plan is for SNF w/ rehab emphasis. Ariel Humphrey can take Monday. Admission and Anticipated Discharge Date Admission Date: March 01, 2021 Subjective Patient seen on daily rounds today. Vocalizes no significant complaints or concerns. He is upset that "staff just came into announce that he was leaving tomorrow for placement" but reports he is aware that this has been the plan. He denies fevers, chills, chest pain, shortness of breath, abdominal pain, nausea or vomiting. Review of Systems Review of Systems: All systems reviewed and are unremarkable except as noted in HPI and below Denies fevers, chills, headache, nasal congestion, sore throat, cough, chest pain, shortness of breath, palpitations, orthopnea, PND, abdominal pain, nausea, vomiting, diarrhea, constipation, dysuria, hematuria, frequency, back pain, joint pain or swelling, easy bruising or bleeding, skin lesions or rashes. Physical Exam Physical Exam: General: Resting comfortably in his hospital bed. NAD. HEENT: Head is AT/NC buccal mucosa is moist and pink Neck: No JVD. Negative hepatojugular reflex Cardiac: RRR without M/G/R Lungs: CTA without W/R/R Abdomen: Normoactive X4. Soft and nontender in all quadrants. Extremities: No peripheral clubbing cyanosis or edema Neuro: A&O X4 cranial nerves II through XII are grossly intact no focal neuro deficits Skin: No obvious skin lesions or rashes Psych: Easily agitated but in no acute distress Results & Data Results & Data ([facility]) Vital Signs (Past 12 Hours) Vital Signs Temp Pulse Resp BP Pulse Ox 03/07/21 15:45 36.7 C 71 18 90/46 L 95 03/07/21 07:57 36.6 C 55 L 16 99/47 L 97 Laboratory Results 03/05/21 07:36 03/05/21 07:36 PG Care Time/CCT Total # of Minutes Spent Total Time Spent with Patient: Total time spent is greater than 50% in coordination of care (as documented) at patient's floor/unit and/or counseling patient: Coding Level of Care Code 67457 Subseq Hosp Care Lvl 2 Diagnoses Acute orchitis N45.2 Left hemiparesis G81.94 History of brain tumor Z87.898 Seizure disorder G40.909 Renal mass N28.89 Debility R53.81 Hypotension I95.9
[2021-03-07] MEDS: ENOXAPARIN INJ 40 MG/0.4 ML SYR SQ SCH (21:39)
[2021-03-07] MEDS: CIPROFLOXACIN 500 MG TAB PO SCH (21:39)
[2021-03-08] MEDS: CIPROFLOXACIN 500 MG TAB PO SCH (07:55)
[2021-03-08] MEDS: dexAMETHasone 1 MG TAB PO SCH (07:55)
[2021-03-08] MEDS: ADVANCED PROBIOTIC 1250 MG CAPSULE PO SCH (07:55)
[2021-03-08] MEDS: levETIRAcetam 500 MG TAB PO SCH (07:55)
--- NOTE | 2021-03-08 16:41 | Discharge Summary ---
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 Patient came to the EMD today via EMS secondary to increase in left testicular pain associated with nausea. Patient has had one day history of left sided testicular pain, which he thought he may have just sat on it while moving around. The pain initially was dull intermittent ache. This progressed this morning to a sharp constant aching with radiation to the left groin, and noted redness of his left testicle. In the EMD the patient had routine labs drawn, ul trasound of his testicles, and CT scan of his abdomen. He was noted to have increased WBC count and fever of 38.4 blood cultures were drawn and UA done. He was also noted to have WBC of 20 was empirically started on Zosyn and Levaquin. Ultrasound of his testicle had small hydrocele, increase flow within left testes suggestive of orchitis and Negative for torsion, abscess or mass. CT of the abd omen and pelvis with no acute abnormalities, but ntoed hypodense lesion of the left kidney. Patient will be admitted to observe response to therapy and pain control. Will transition antibiotics to Rocephin, follow up with G&C Urine and serum RPR for other STIs. Patient COVID test on admission is: NEGATIVE Principal Diagnosis 1. Acute orchitis 2. General debility Discharge Exam General: Resting comfortably in his hospital bed. NAD. HEENT: Head is AT/NC buccal mucosa is moist and pink Neck: No JVD. Negative hepatojugular reflex Cardiac: RRR without M/G/R Lungs: CTA without W/R/R Abdomen: Normoactive X4. Soft and nontender in all quadrants. Extremities: No peripheral clubbing cyanosis or edema Neuro: A&O X4 cranial nerves II through XII are grossly intact no focal neuro deficits Skin: No obvious skin lesions or rashes Psych: Easily agitated but in no acute distress Discharge Data Allergies Allergy/AdvReac Type Severity Reaction Status Date / Time phenytoin Allergy Intermediate Redness of Verified 03/01/21 15:01 Skin zonisamide AdvReac Intermediate Depression Verified 03/01/21 15:01 Consultations 03/01/21 16:11 ED Decision to Admit Stat 03/02/21 08:02 Consult Urology Routine History of Present Illness 66 yo M with past medical history of neoplasm of brain, s/p craniotomy, left hemiparesis, seizure disorder, alcohol and tobacco abuse, and asthma admitted for fever and acute orchitis. Patient presented to [facility] [place] ED on 03/01/21 with left testicular pain and fever. Febrile on arrival, Tmax 38.4. Lab work independently reviewed. Creatinine 0.50, WBC 20.02, Hgb 13.8, Lactate 0.9. UA 1-5 WBCs, RBCs 0-4, Epithelials 5-10, negative for bacteria and nitrates. Urine and blood cultures collected and p ending. RPR, GC/CT, and Hep C collected and pending. Covid testing negative. Scrotal US reviewed and suggests left orchitis, small mildly complex left hydrocele. CTAP reviewed and showed no acute abnormalities, incidentally noted a 16 mm hypodense lesion in the left kidney superior pole. ED course included IV fluids, Zosyn, Acetaminophen, Zofran, and Fentanyl. He was admitted to hospital medicine for further evaluation and management. Our service is consulted for acute orchitis and hydrocele. Chart review: Afebrile overnight Last febrile on 03/01 @ 18:59 (T 38.0) Creatinine 0.51 WBC 22.33 Hgb 11.5 Urine culture pending BCx pending, / prelim gram positive cocci clusters On IV Cetriaxone and Levofloxacin Imaging Scrotal US IMPRESSION: 1. Asymmetric increased flow within the left testis suggestive of orchitis. 2. Small, mildly complex left hydrocele. 3. Testicular microlithiasis. CTAP w IV con only IMPRESSION: 1. No acute abnormalities are seen to explain left-sided pain and fever. No evidence of diverticulitis. No changes of pyelonephritis are seen. 2. There is a 16 mm hypodense lesion in the left kidney superior pole which is not measures simple fluid density. If not previously evaluated, nonemergent CT or MRI renal mass protocol can be performed. Patient seen and examined at bedside this AM. He is sleeping on arrival, arouses easily to his name. Continues to have left testicular pain, rated 7/10 at present. Pain started about 2 days ago. Reports area is tender to the touch. Denies flank or abdominal pain. No nausea or vomiting. No fever or chills at present. He is voiding spontaneously into urinal. No dysuria or hematuria. Baseline urinary symptoms include: urinary frequency, nocturia x 3-4, urinary incontinence, stream fair, feels like he empties his bladder well most of the time. Denies prior urology evaluations. Denies known PSA screening. Denies personal or family history of stones. Reports he is adopted, but no known family history of malignancy. Offers no additional complaints at this time. Ordered Studies 03/01/21 10:36 US scrotum/testicle Stat IMPRESSION: 1. Asymmetric increased flow within the left testis suggestive of orchitis. 2. Small, mildly complex left hydrocele. 3. Testicular microlithiasis. 03/01/21 11:42 CT abd pelvis IV con only Stat IMPRESSION: 1. No acute abnormalities are seen to explain left-sided pain and fever. No evidence of diverticulitis. No changes of pyelonephritis are seen. 2. There is a 16 mm hypodense lesion in the left kidney superior pole which is not measures simple fluid density. If not previously evaluated, nonemergent CT or MRI renal mass protocol can be performed. 03/05/21 12:15 MR abdomen wo/w con Routine IMPRESSION: Previously noted hypodensity in the left kidney represents a cystic lesion associated with a likely cortical scar. This is not a suspicious lesion and no further follow-up is required. Hospital Course (1) Acute orchitis: Presented to the hospital on account of testicular pain. - had fever of 101.12 and leukocytosis of 20.02 - An ultrasound of the scrotum showed evidence of acute orchitis - Urology was consulted, they recommend scrotal support anti-inflammatory. - Initially on Vancomycin and ceftriaxone - One bottle of blood cultures positive for coagulase negative staph, most likely contaminant - Urine culture showing no growth - Patient is much improved clinically, WBC is now wnl - Vancomycin has been discontinued. Rocephin transitioned to oral Cipro. Will need total of 10 days of treatment (needs 4 additional days and patient chronically takes carbamazepine. There is a risk of toxicity; however, only needed for short-term so should be okay) --Watch clinically for S/S carbamazepine toxicity - Continue scrotal support and pain relief - Currently without scrotal pain (2) Debility: - Patient has been seen by PT/OT and is recommending rehab - Patient agreeable and actually preferring this plan - Typically walks with a quad cane and utilizes a wheelchair at home - Case management on board - For melissa Humphrey today. Patient medically and hemodynamically stable for discharge at this time (3) Left hemiparesis: Chronic following astrocytoma resection in 2004 - Walks with cane and has wheelchair at home - PT/OT on board -- for SNF today for IP rehab (4) History of brain tumor: Astrocytoma 2004 follows with neurology - most recent MRI of brain performed in Jan 2021-consistent with recurre nt/progressive tumor - Remains on Decadron 2mg orally BID - Follows with neurology (5) Seizure disorder: Secondary to astrocytoma/resection - Continue with Keppra and Carbamazepine (watch given mild interaction with Carbamazepine and Cipro but very short term tx) - Follows with neurology (6) Renal mass: Incidental finding on CT scan of abdomen and pelvis - 16mm hypodensity is seen in the left kidney superior pole which does not measure simple fluid attenuation. - MRI showing cortical scar with no suspicious lesion (7) Hypotension: -intermittent without S/S sepsis syndrome -Patient seems to be asymptomatic -In review of old records, patient's blood pressure fluctuates. -He is not on any oral antihypertensive agents -Suspect this is his baseline -Current BP is 137/70 patient says he is unable to adequately take care of himself at home (he lives with his ex-) Plan is for SNF w/ rehab emphasis. Ariel Humphrey can take today Total Time Total Time Spent Total Time Spent (In Minutes): 45 Discharge Plan Discharge Items Patient Disposition: Transfer [facility] Reason For Visit: ORCHITIS Discharge Diagnosis: 1. Acute Orchitis 2. Overall Debility Activity: Resume your previous activity Activity Comment: with PT/OT Non-emergency contact: Primary Care Provider Call non-emergency contact if: you have any medication questions Follow-up/Referrals: Andreia Fields DO [Primary Care Provider] - Diet: Regular Addtl Attending Provider Instructions: - patient presented to the ED with a fever, elevated WBC count (leukocytosis) and testicular pain--> found to have orchitis (inflammation/infection of the testicle) - responded favorably to antibiotic therapy - seen by PT/OT while in house for associated debility/weakness, who is recommending inpatient rehab - discharge to [facility] for continue rehab - take medications as outlined (including completion of antibiotic therapy) - Pt requires 4 additional doses of Cipor (this is combination of Carbamazepine can increase levels of Carbamazepine. Watch closely for s/s toxicity and consider changing cipro and obtaining a level if needed) - follow up with House Physician within 24-48 hours - routine labs at discretion of house provider - return to the ED for new or wornseing symptoms Pending Studies at Discharge: No Stand-Alone Forms: My [facility] Skilled Items Patient informed of condition?: Yes DNR: No Discharge Level of Care: Skilled Communicable Disease: No Discharge Prognosis: Improving Lines: None Urinary Catheter: No Medications and DC Order Prescriptions: New ciprofloxacin HCl 500 mg Tablet 500 mg PO BID Qty: 9 RF: 0 ibuprofen 600 mg Tablet 600 mg PO Q6H PRN (Reason: pain) Qty: 30 RF: 0 Continued levetiracetam 1,000 mg tablet 1,000 mg PO BID 90 Days Qty: 180 RF: 1 cholestyramine (with sugar) [Questran] 4 gram powder 4 g PO BID Qty: 378 RF: 2 dexamethasone [Decadron] 4 mg tablet 2 mg PO BID Qty: 30 RF: 3 carbamazepine 200 mg capsule, ER multiphase 12 hr 400 mg PO BID 90 Days Qty: 360 RF: 1 glucosamine sulfate 2KCl [Glucosamine Relief] 1,000 mg tablet 2,000 mg PO BID RF: 0 triamcinolone acetonide 0.1 % ointment 1 applic topical BID Qty: 454 RF: 0 folic acid 1 mg tablet 1 mg PO BID Qty: 30 RF: 0 vitamin B complex [B Complex-Vitamin B12] tablet 1 tab PO DAILY RF: 0 multivitamin [Multiple Vitamins] tablet 1 tab PO DAILY RF: 0 Wheelchair (Manual) Device See Rx Instructions .ROUTE .COMPLEX Qty: 1 RF: 0 Wheeled Walker Misc See Rx Instructions .ROUTE .COMPLEX Qty: 1 RF: 0 Saccharomyces boulardii [Florastor] 250 mg capsule 500 mg PO BID RF: 0 cholecalciferol (vitamin D3) [Vitamin D3] 25 mcg (1,000 unit) Tablet 25 mcg PO DAILY RF: 0 Discharge Orders: Discharge Order (Routine); Ordered 03/08/21 Ordered By: Maliha Miramontes/Other Patient Handouts: ED Orchitis Admission Data Admit Date/Time: 03/01/21 16:55 Attending Provider: Eleazar Lei Admit Provider: Joshua Tolliver Primary Care Provider: Andreia Fields Other Providers: Joshua Tolliver ; Trell Pacheco ; Kenyon Montoya Other Interventions: Discharge Summary Assessment (RN) Last Done: 03/08/21 12:15 Supervising Physician Co-Signing Physician Notes Patient seen and examined, chart reviewed, case discussed with Anne Richey PA-C and I agree with the assessment and plan as above except as otherwise noted General: A&Ox3. NAD. Cooperative. HEENT: Atraumatic, normocephalic. Pulm: CTAB A&P. -wheezes, -rales, -rhonchi. Symmetrical chest rise. No increase work of breathing. No respiratory distress. Cardiac: RRR, -mrg. Radial pulses intact and symmetrical. Abdominal: Nontender, nondistended, soft. BS present. All labs and images reviewed No pain at time of discharge. Orchiitis, initial tx with Vanc/rocephin transitioned to cipro with resolution of symptoms and pain. Pt denies sexual activity. Neisseria, Chlamydia, Syphilis testing negative, UA negative. COVID negative during admission. Continue cipro x10 days. Coding Level of Care Code D/C DAY MANAGEMENT >30 MINS Diagnoses Acute orchitis N45.2 Debility R53.81 Left hemiparesis G81.94 History of brain tumor Z87.898 Seizure disorder G40.909 Renal mass N28.89 Hypotension I95.9
== END 2021-03-08 13:10 | DRG 728 ==
LOC: ED 10:28 → 3N 16:55 → SUATTDRO 16:55 → 3N 18:26
DX: N45.2 Orchitis; C71.9 Malignant neoplasm of brain, unspecified; N28.9 Disorder of kidney and ureter, unspecified; Z91.14 Patient's other noncompliance with medication regimen; J45.909 Unspecified asthma, uncomplicated; G81.94 Hemiplegia, unspecified affecting left nondominant side; I95.9 Hypotension, unspecified; M17.0 Bilateral primary osteoarthritis of knee; G40.909 Epilepsy, unspecified, not intractable, without status epilepticus; N43.3 Hydrocele, unspecified; R50.9 Fever, unspecified; R53.81 Other malaise; Z85.841 Personal history of malignant neoplasm of brain; Z88.8 Allergy status to other drugs, medicaments and biological substances; F17.210 Nicotine dependence, cigarettes, uncomplicated